=== PATIENT | male | born 1960 | race Caucasian/White ===

== ENCOUNTER 2022-10-21 07:53 | Outpatient (OUT) | payer BC, SELFPAY ==
--- NOTE | 2022-10-21 08:04 | US_ITS ---
The [address] [address] Patient Name: VIVIENNE HEALY MRN: [id number] date: 1960 Sex: M Assigned Patient Location: US Current Patient Location: US Accession/Order Number: [id number] Exam Date: 10/21/2022 08:02 Report Date: 10/21/2022 09:14 At the request of: LILY ZARCO Procedure: US carotid duplex BI EXAM: US abdominal aortic aneurysm, US carotid duplex BI HISTORY: INFARENAL ABDOMINAL AORTIC ANEURYSM I71.43 COMPARISON: U106/10/2021ound. TECHNIQUE: Real-time aortic ultrasound. Doppler color flow as well as spectral analysis were performed. Findings: There is aneurysmal dilatation of the abdominal aorta. Proximally: 3.2 x 3.6 cm. Mid: 3.3 x 4.0 cm. Distally 3.9 x 4.2 cm. The right and left common iliac arteries measure 2.3 x 2.8 and 2.1 x 2.7 cm. IMPRESSION: 1. Abdominal aortic aneurysm. Electronically authenticated by: DOMINGUEZ ORLANDO Date: 10/21/2022 09:14
--- NOTE | 2022-10-21 08:04 | US_ITS ---
The [address] [address] Patient Name: VIVIENNE HEALY MRN: [id number] date: 1960 Sex: M Assigned Patient Location: Current Patient Location: Accession/Order Number: [id number] Exam Date: 10/21/2022 08:02 Report Date: 10/21/2022 09:14 At the request of: LILY ZARCO Procedure: US abdominal aortic aneurysm EXAM: US abdominal aortic aneurysm, US carotid duplex BI HISTORY: INFARENAL ABDOMINAL AORTIC ANEURYSM I71.43 COMPARISON: U106/10/2021ound. TECHNIQUE: Real-time aortic ultrasound. Doppler color flow as well as spectral analysis were performed. Findings: There is aneurysmal dilatation of the abdominal aorta. Proximally: 3.2 x 3.6 cm. Mid: 3.3 x 4.0 cm. Distally 3.9 x 4.2 cm. The right and left common iliac arteries measure 2.3 x 2.8 and 2.1 x 2.7 cm. US/US abdominal aortic aneurysm IMPRESSION: 1. Abdominal aortic aneurysm. Electronically authenticated by: DOMINGUEZ ORLANDO Date: 10/21/2022 09:14
== END 2022-10-21 07:54 ==
LOC: US 07:56
PROVIDERS: PCP Family Medicine
DX: I65.23 Occlusion and stenosis of bilateral carotid arteries (principal); I71.43 Infrarenal abdominal aortic aneurysm, without rupture; R09.89 Other specified symptoms and signs involving the circulatory and respiratory systems
CPT/HCPCS: 76775; 93880

== ENCOUNTER 2023-03-19 07:31 | Outpatient (REF) | payer BC, SELFPAY ==
[2023-03-20 09:34] LABS: Occult Blood Negative
== END 2023-03-19 07:32 | disposition home or self-care (01) ==
LOC: LAB 07:31
PROVIDERS: PCP Family Medicine; Visit Provider Family Medicine
DX: Z00.00 Encounter for general adult medical examination without abnormal findings (principal)
CPT/HCPCS: G0328

== ENCOUNTER 2023-03-20 06:32 | Outpatient (OUT) | payer BC, SELFPAY ==
[2023-03-20 07:03] LABS: Basophils Absolute Auto 0.1 10^3/uL (0.0-0.1); Basophils Percent Auto 0.8 % (0.2-2.0); Eosinophils Absolute Auto 0.2 10^3/uL (0.0-0.7); Eosinophils Percent Auto 2.4 % (0.9-7.0); Hematocrit 47.5 % (42.0-54.0); Hemoglobin 15.8 g/dL (14.0-18.0); Immature Granulocytes Abs Auto 0.01 10^3/uL (0.00-0.03); Immature Granulocytes Pct Auto 0.1 % (0.0-0.5); Lymphocytes Absolute Auto 2.1 10^3/uL (1.2-3.8); Lymphocytes Percent Auto 29.3 % (20.5-60.0); Mean Corpuscular HGB Conc 33.3 g/dL (29.9-35.2); Mean Corpuscular Volume 87.3 fL (80.0-94.0); Monocytes Absolute Auto 0.6 10^3/uL (0.3-0.8); Monocytes Percent Auto 7.9 % (1.7-12.0); Neutrophils Absolute Auto 4.2 10^3/uL (1.4-6.5); Neutrophils Percent Auto 59.5 % (43.0-75.0); Platelet Count 202 10^3/uL (150-450); Red Blood Count 5.44 10^6/uL (4.70-6.10); Red Cell Distribution Width 12.6 % (11.0-15.0); White Blood Count 7.1 10^3/uL (4.0-11.0)
[2023-03-20 07:56] LABS: Prostate Specific Antigen Scrn 0.98 ng/mL (<=4.00)
[2023-03-20 07:57] LABS: Alanine Aminotransferase 32 U/L (16-63); Albumin Globulin Ratio 1.3; Albumin Level 3.8 g/dL (3.4-5.0); Alkaline Phosphatase 113 U/L (46-116); Anion Gap 12.6; Aspartate Amino Transferase 16 U/L (15-37); BUN Creatinine Ratio 15.7; Bilirubin Total 0.9 mg/dL (0.2-1.0); Carbon Dioxide 30.8 mmol/L (21.0-32.0); Chloride 105 mmol/L (98-107); Chol HDL Ratio 3.4; Cholesterol 135 mg/dL (<=200); Estimated GFR (African America >60 (>=60); Estimated GFR (Non-African Ame >60 (>=60); Free T3 3.05 pg/mL (2.18-3.98); Glucose 105 mg/dL (74-106); HDL Cholesterol 40 mg/dL (40-60); LDL Cholesterol Calculated 71.6 mg/dL; Potassium 4.4 mmol/L (3.5-5.1); Sodium 144 mmol/L (136-145); Total Protein 6.8 g/dL (6.4-8.2); Triglycerides 117 mg/dL (<=150); VLDL CHOLESTEROL 23.4 mg/dL
[2023-03-20 08:03] LABS: Estimated Average Glucose 108 mg/dL; Glycohemoglobin A1C 5.4 % (4.5-6.2)
[2023-03-22 12:08] LABS: Insulin 12.8 uIU/mL (2.6-24.9)
== END 2023-03-20 06:33 | disposition home or self-care (01) ==
LOC: LAB 06:33
PROVIDERS: PCP Family Medicine; Visit Provider Family Medicine
DX: Z00.00 Encounter for general adult medical examination without abnormal findings (principal)
CPT/HCPCS: 36415; 80053; 80061; 83036; 83525; 84436; 84443; 84481; 85025; G0103; G0328

== ENCOUNTER 2023-04-13 15:42 | Outpatient (OUT) | payer BC, SELFPAY ==
--- NOTE | 2023-04-13 15:47 | CT_ITS ---
[address] [address] Patient Name: VIVIENNE HEALY MRN: [id number] date: 1960 Sex: M Assigned Patient Location: CT Current Patient Location: CT Accession/Order Number: [id number] Exam Date: 04/13/2023 16:04 Report Date: 04/13/2023 16:52 At the request of: LILY ZARCO Procedure: CT angio abdomen pelvis EXAM: CT angiogram of the abdomen and pelvis using 97 mL of IV iodinated contrast. 3D images were generated on an independent workstation for better evaluation of the vasculature. Dose reduction technique used: Automated exposure control and/or adjustment of the mA and/or kV according to patient size and/or use of iterative reconstruction technique. REASON FOR EXAM: Aortic Aneurysm I71.43 COMPARISON: CT scan dated 10/25/2017 FINDINGS: Infrarenal abdominal aortic aneurysm measuring up to 3.4 cm. No aortic dissection or significant stenosis. Penetrating atheromatous ulcer versus focal dissection in the right common iliac artery with right common iliac artery aneurysm measuring up to 2.3 cm. 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 Focal dissection versus penetrating atheromatous ulcer in the left internal iliac artery. Moderate to severe stenosis at the origin of the left renal artery origin. Mild contour irregularity along the course of the left renal artery with diffuse fusiform dilation of the main left renal artery measuring up to 9 mm. Mild stenosis at the origin of the right renal artery. Fusiform ectasia at the right renal artery brifurcation measuring up to 8 mm. Stenosis versus occlusion at the origin of the inferior mesenteric artery with collateral reconstitution. Cholecystectomy. Right renal cyst measuring up to 6.2 cm. Colonic diverticulosis. Normal appendix. No free intraperitoneal air. No free fluid in the abdomen or pelvis. No dilated or thickened loops of small bowel or colon. No hydronephrosis or obstructing renal or ureteral calculi. Liver, pancreas, spleen, bilateral kidneys, and bilateral adrenal glands are otherwise unremarkable. Remainder unremarkable. CT/CT angio abdomen pelvis IMPRESSION: 1. Infrarenal abdominal aortic aneurysm measuring up to 3.4 cm. 2. 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 3. 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 4. Focal penetrating atheromatous ulcer or dissection flap in the left internal iliac artery. 5. 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 6. Contour irregularities and diffuse fusiform aneurysmal dilation left renal artery, findings could be due to fibromuscular dysplasia. 7. Mild fusiform aneurysmal dilation at the bifurcation of the right renal artery. Electronically authenticated by: JOHNATHAN BRAR Date: 04/13/2023 16:52
== END 2023-04-13 15:43 | disposition home or self-care (01) ==
PROVIDERS: PCP Family Medicine
DX: I71.43 Infrarenal abdominal aortic aneurysm, without rupture (principal); I72.3 Aneurysm of iliac artery
CPT/HCPCS: 74174; Q9967

== ENCOUNTER 2024-02-22 07:11 | Outpatient (OUT) | payer BC, SELFPAY ==
--- OUTSIDE RECORDS SUMMARY | 2024-02-22 07:15 | XMS_ITS | CCD ---
Author Organization [facility] Care Team Providers Care Event Marketing Specialist Name Role Phone Zuhair Morel Unavailable Unavailable HOY ., DR LINDSAY Primary Care Unavailable ELTAHAWY, DR RICE Attending Unavailable ELTAHAWY, DR RICE Admitting Unavailable ELTAHAWY, DR RICE Consulting Unavailable HOY ., DR LINDSAY Primary Care Unavailable MISC, DR JACOBSON Attending Unavailable MISC, DR JACOBSON Admitting Unavailable MISC, DR JACOBSON Consulting Unavailable JIA, LUIS Attending Unavailable LUIS RO Admitting Unavailable HOY ., DR LINDSAY Primary Care Unavailable LUIS RO Consulting Unavailable SERGIO LOGAN Admitting Unavailable WEST, DR AARON Diallo Consulting Unavailable DESMONDSERGIO Attending Unavailable HOY ., DR LINDSAY Primary Care Unavailable SERGIO LOGAN Consulting Unavailable HOY ., DR LINDSAY Consulting Unavailable HOY ., DR LINDSAY Attending Unavailable HOY ., DR LINDSAY Admitting Unavailable HOY ., DR LINDSAY Primary Care Unavailable WEST, DR AARON Diallo Consulting Unavailable ELTAHAWY, EHAB Attending Unavailable Problems Active Problems Problem Classification Problem Date Documented Date Episodic/Chronic Cardiac dysrhythmias (2 sources) Palpitations; Translations: [Palpitations] Onset: 11-15-2023 Episodic Coronary atherosclerosis and other heart disease (6 sources) Atherosclerotic heart disease of [place] coronary artery without angina pectoris; Translations: [ASHD DRY CREEK CA W/O ANGINA PECTORIS] Onset: 05-27-2022 Chronic Coronary atherosclerosis and other heart disease (4 sources) Presence of aortocoronary bypass graft; Translations: [PRESENCE AORTOCORONARY BYPASS GRAFT] Onset: 06-01-2022 Episodic Disorders of lipid metabolism (2 sources) Hyperlipidemia, unspecified; Translations: [Hyperlipidemia, unspecified] Onset: 11-15-2023 Chronic Occlusion or stenosis of precerebral arteries (1 source) Occlusion and stenosis of bilateral carotid arteries; Translations: [OCCLUSION AND STENOS PREETHI CAROTID ART] Onset: 04-10-2022 Chronic Residual codes; unclassified (2 sources) Other specified health status; Translations: [Other specified health status] Onset: 11-15-2023 Episodic Unclassified (1 source) ABDOMINAL AA W/O RUPTURE UNSPCIFIED; Translations: [ABDOMINAL AA W/O RUPTURE UNSPCIFIED] Onset: 04-10-2022 Past or Other Problems Problem Classification Problem Date Documented Da te Episodic/Chronic Nonspecific chest pain (4 sources) Chest pain, unspecified; Translations: [CHEST PAIN UNSPECIFIED] Onset: 03-26-2022 Episodic Results Test Name Value Interpretation Reference Range Facil ity Office Visiton 11-15-2023 Follow-up visit [id number] Alexandrea Healy 1960 M Date Provider Department Center 11/15/2023 Gabriela-KRYSTAL JARA [facility] Family History Problem Relation Age of Onset Heart attack Father 46 Heart attack Brother 55 Coronary artery disease Brother Other Brother Family Status - Relation Status Age at Father Brother Alive Level of Service:79912 [place] OFFICE/OUTPATIENT ESTABLISHED MOD MDM 30 MIN Normal [facility] CBC AUTO DIFFon 05-27-2022 BASO # 0.1 103/ul Normal 0.0-0.1 [facility] Comment on above: Performed By: #### C BC #### [facility] [address] [place] [address] Dr. Kvng Smith Basophils/100 WBC (Bld) 0.9 % Normal 0.2-2.0 [facility] Comment on above: Performed By: #### C BC #### [facility] [address] [address] [address] Kvng Smith EO # 0.3 103/ul Normal 0.0-0.7 [facility] Comment on above: Performed By: #### C BC #### [facility] [address] [address] [address] Kvng Smith Eosinophils/100 WBC (Bld) 4.2 % Normal 0.9-7.0 [facility] Comment on above: Performed By: #### C BC #### [facility] [address] [address] [address] Kvng Smith Erythrocyte distribution width (RBC) [Ratio] 14.2 % Normal 11.0-15.0 [facility] Comment on above: Performed By: #### C BC #### [facility] [address] [place] [address] Dr. Kvng Smith Hematocrit (Bld) [Volume fraction] 43.2 % Normal 42.0-54.0 [facility] Comment on above: Performed By: #### C BC #### [facility] [address] [place] [address] Dr. Kvng Smith Hemoglobin (Bld) [Mass/Vol] 14.0 g/dL Normal 14.0-18.[address] [facility] Comment on above: Performed By: #### C BC #### [facility] [address] [place] [address] Dr. Kvng Smith IG # 0.02 10e3/ul Normal 0.00-0.03 [facility] Comment on above: Performed By: #### C BC #### [facility] [address] [place] [address] Dr. Kvng Smith IG % 0.3 % Normal 0.0-0.5 [facility] Comment on above: Performed By: #### C BC #### [facility] [address] [place] [address] Dr. Kvng Smith LYMPH # 1.7 103/ul Normal 1.2-3.8 [facility] Comment on above: Performed By: #### C BC #### [facility] [address] [place] [address] Dr. Kvng Smith Lymphocytes/100 WBC (Bld) 25.2 % Normal 20.5-60.[address] [facility] Comment on above: Performed By: #### C BC #### [facility] [address] [place] [address] Dr. Kvng Smith MANUAL DIFF REQ NO Normal [facility] Comment on above: Performed By: #### C BC #### [facility] [address] [place] [address] Dr. Kvng Smith MCH (RBC) [Entitic mass] 27.8 pg Normal 25.9-34.0 [facility] Comment on above: Performed By: #### C BC #### [facility] [address] [place] [address] Dr. Kvng Smith MCHC (RBC) [Mass/Vol] 32.4 g/dL Normal 29.9-35.2 [facility] Comment on above: Performed By: #### C BC #### [facility] [address] [place] [address] Dr. Kvng Smith MCV (RBC) [Entitic vol] 85.7 fL Normal 80.0-94.[address] [facility] Comment on above: Performed By: #### C BC #### [facility] [address] [place] [address] Dr. Kvng Smith MONO # 0.5 103/ul Normal 0.3-0.8 [facility] Comment on above: Performed By: #### C BC #### [facility] [address] [place] [address] Dr. Kvng Smith Monocytes/100 WBC (Bld) 7.7 % Normal 1.7-12.0 [facility] Comment on above: Performed By: #### C BC #### [facility] [address] [place] [address] Dr. Kvng Smith NEUT # 4.2 103/ul Normal 1.4-6.5 [facility] Comment on above: Performed By: #### C BC #### [facility] [address] [place] [address] Dr. Kvng Smith Neutrophils/100 WBC (Bld) 61.7 % Normal 43.0-75.[address] [facility] Comment on above: Performed By: #### C BC #### [facility] [address] [place] [address] Dr. Kvng Smith Platelet mean volume (Bld) [Entitic vol] 8.9 fL Critically low 9.5-13.5 [facility] Comment on above: Performed By: #### C BC #### [facility] [address] [place] [address] Dr. Kvng Smith PLT 208 103/ul Normal 150-[address] [facility] Comment on above: Performed By: #### C BC #### [facility] [address] [address] [address] Kvng Smith RBC 5.04 106/ul Normal 4.70-6.[address] [facility] Comment on above: Performed By: #### C BC #### [facility] [address] [address] [address] Kvng Smith WBC 6.9 103/ul Normal 4.0-11.0 [facility] Comment on above: Performed By: #### C BC #### [facility] [address] [address] [address] Kvng Smith LIPID PROFILEon 05-27-2022 CHOL-HDL RATIO NORM SEE BELOW Normal [facility] Comment on above: Result Comment: 3.3 - 4.4 LOW RISK 4.4 - 7.1 AVERAGE RISK 7.1 - 11.0 MODERATE RISK >11.0 HIGH RISK Performed By: #### L IPID, CMP #### [facility] [address] [place] [address] Dr. Kvng Smith Cholesterol [Mass/Vol] 135 mg/dL Normal <=[address] [facility] Comment on above: Performed By: #### L IPID, CMP #### [facility] [address] [place] [address] Dr. Kvng Smith Cholesterol in HDL [Mass/Vol] 38 mg/dL Critically low 40-[address] [facility] Comment on above: Performed By: #### L IPID, CMP #### [facility] [address] [address] [address] Kvng Smith Cholesterol in LDL [Mass/Vol] 61.2 mg/dL Normal [facility] Comment on above: Performed By: #### L IPID, CMP #### [facility] [address] [address] [address] Kvng Smith Cholesterol.total/ Cholesterol in HDL [Mass ratio] 3.6 {ratio} Normal [facility] Comment on above: Performed By: #### L IPID, CMP #### [facility] [address] [address] [address] Kvng Smith HDL NORMAL > or = 60 mg/dl - LO W CARDIOVASCULAR RISK <40 mg/dl - HIGH CARDIOVASCULAR RISK Normal [facility] Comment on above: Performed By: #### L IPID, CMP #### [facility] [address] [address] [address] Kvng Smith LDL CALC NORMAL SEE BELOW Normal [facility] Comment on above: Result Comment: <100 mg/dl OPTIMAL 100 - 129 mg/dl NEAR OR ABOVE OPTIMAL 130 - 159 mg/dl BORDERLINE HIGH 160 - 189 mg/dl HIGH >190 mg/dl VERY HIGH Performed By: #### L IPID, CMP #### [facility] [address] [place] [address] Dr. Kvng Smith Triglyceride [Mass/Vol] 179 mg/dL Critically high <=150 [facility] Comment on above: Performed By: #### L IPID, CMP #### [facility] [address] [place] [address] Dr. Kvng Smith VLDL CALC 35.8 mg/dL Normal [facility] Comment on above: Performed By: #### L IPID, CMP #### [facility] [address] [place] [address] Dr. Kvng Smith PROF 14(COMP METB)on 023 Albumin [Mass/Vol] 3.6 g/dL Normal 3.4-5.0 [facility] Comment on above: Performed By: #### L IPID, CMP #### [facility] [address] [place] [address] Dr. Kvng Smith Albumin/Globulin [Mass ratio] 1.2 {ratio} Normal [facility] Comment on above: Performed By: #### L IPID, CMP #### [facility] [address] [place] [address] Dr. Kvng Smith ALP [Catalytic activity/Vol] 129 U/L Critically high 46-116 [facility] Comment on above: Performed By: #### L IPID, CMP #### [facility] [address] [place] [address] Dr. Kvng Smith ALT [Catalytic activity/Vol] 32 U/L Normal 16-63 [facility] Comment on above: Performed By: #### L IPID, CMP #### [facility] [address] [place] [address] Dr. Kvng Smith Anion gap [Moles/Vol] 8.8 mmol/L Normal [facility] Comment on above: Performed By: #### L IPID, CMP #### [facility] [address] [place] [address] Dr. Kvng Smith AST [Catalytic activity/Vol] 16 U/L Normal 15-37 [facility] Comment on above: Performed By: #### L IPID, CMP #### [facility] [address] [place] [address] Dr. Kvng Smith Bilirubin [Mass/Vol] 0.5 mg/dL Normal 0.2-1.0 [facility] Comment on above: Performed By: #### L IPID, CMP #### [facility] [address] [place] [address] Dr. Kvng Smith Calcium [Mass/Vol] 9.3 mg/dL Normal 8.5-10.1 [facility] Comment on above: Performed By: #### L IPID, CMP #### [facility] [address] [place] [address] Dr. Kvng Smith Chloride [Moles/Vol] 104 mmol/L Normal 98-107 [facility] Comment on above: Performed By: #### L IPID, CMP #### [facility] [address] [place] [address] Dr. Kvng Smith CO2 [Moles/Vol] 32.1 mmol/L Critically high 21.0-32.0 [facility] Comment on above: Performed By: #### L IPID, CMP #### [facility] [address] [place] [address] Dr. Kvng Smith Creatinine [Mass/Vol] 0.91 mg/dL Normal 0.70-1.30 [facility] Comment on above: Performed By: #### L IPID, CMP #### [facility] [address] [place] [address] Dr. Kvng Smith EGFR-AF TOGOLESE >60 Normal >=60 [facility] Comment on above: Performed By: #### L IPID, CMP #### [facility] [address] [address] [address] Kvng Smith EGFR-NON AF TOGOLESE >60 Normal >=60 [facility] Comment on above: Performed By: #### L IPID, CMP #### [facility] [address] [address] [address] Kvng Smith Globulin (S) [Mass/Vol] 3.0 g/dL Normal [facility] Comment on above: Performed By: #### L IPID, CMP #### [facility] [address] [address] [address] Kvng Smith Glucose [Mass/Vol] 108 mg/dL Critically high 74-106 [facility] Comment on above: Performed By: #### L IPID, CMP #### [facility] [address] [address] [address] Kvng Smith Potassium [Moles/Vol] 3.9 mmol/L Normal 3.5-5.1 [facility] Comment on above: Performed By: #### L IPID, CMP #### [facility] [address] [address] [address] Kvng Smith Protein [Mass/Vol] 6.6 g/dL Normal 6.4-8.2 [facility] Comment on above: Performed By: #### L IPID, CMP #### [facility] [address] [address] [address] Kvng Smith Sodium [Moles/Vol] 141 mmol/L Normal 136-145 [facility] Comment on above: Performed By: #### L IPID, CMP #### [facility] [address] [address] [address] Kvng Smith Urea nitrogen [Mass/Vol] 14.0 mg/dL Normal 7.0-18.0 [facility] Comment on above: Performed By: #### L IPID, CMP #### [facility] [address] [place] [address] Dr. Kvng Smith Urea nitrogen/Creatinin e [Mass ratio] 15.4 mg/mg Normal [facility] Comment on above: Performed By: #### L IPID, CMP #### [facility] [address] [place] [address] Dr. Kvng Smith CBC AUTO DIFFon 04-09-2022 BASO # 0.0 103/ul Normal 0.0-0.1 [facility] Comment on above: Performed By: #### C BC #### [facility] [address] [place] [address] Dr. Kvng Smith Basophils/100 WBC (Bld) 0.7 % Normal 0.2-2.[address] [facility] Comment on above: Performed By: #### C BC #### [facility] [address] [place] [address] Dr. Kvgn Smith EO # 0.1 103/ul Normal 0.0-0.7 [facility] Comment on above: Performed By: #### C BC #### [facility] [address] [place] [address] Dr. Kvng Smith Eosinophils/100 WBC (Bld) 2.3 % Normal 0.9-7.0 [facility] Comment on above: Performed By: #### C BC #### [facility] [address] [place] [address] Dr. Kvng Smith Erythrocyte distribution width (RBC) [Ratio] 12.9 % Normal 11.0-15.[address] [facility] Comment on above: Performed By: #### C BC #### [facility] [address] [place] [address] Dr. Kvng Smith Hematocrit (Bld) [Volume fraction] 47.1 % Normal 42.0-54.[address] [facility] Comment on above: Performed By: #### C BC #### [facility] [address] [place] [address] Dr. Kvng Smith Hemoglobin (Bld) [Mass/Vol] 15.3 g/dL Normal 14.0-18.[address] [facility] Comment on above: Performed By: #### C BC #### [facility] [address] [place] [address] Dr. Kvng Smith IG # 0.01 10e3/ul Normal 0.00-0.03 [facility] Comment on above: Performed By: #### C BC #### [facility] [address] [place] [address] Dr. Kvng Smith IG % 0.2 % Normal 0.0-0.5 [facility] Comment on above: Performed By: #### C BC #### [facility] [address] [place] [address] Dr. Kvng Smith LYMPH # 1.5 103/ul Normal 1.2-3.8 [facility] Comment on above: Performed By: #### C BC #### [facility] [address] [place] [address] Dr. Kvng Smith Lymphocytes/100 WBC (Bld) 26.7 % Normal 20.5-60.0 [facility] Comment on above: Performed By: #### C BC #### [facility] [address] [place] [address] Dr. Kvng Smith MANUAL DIFF REQ NO Normal [facility] Comment on above: Performed By: #### C BC #### [facility] [address] [place] [address] Dr. Kvng Smith MCH (RBC) [Entitic mass] 27.7 pg Normal 25.9-34.0 [facility] Comment on above: Performed By: #### C BC #### [facility] [address] [place] [address] Dr. Kvng Smith MCHC (RBC) [Mass/Vol] 32.5 g/dL Normal 29.9-35.2 [facility] Comment on above: Performed By: #### C BC #### [facility] [address] [place] [address] Dr. Kvng Smith MCV (RBC) [Entitic vol] 85.2 fL Normal 80.0-94.0 [facility] Comment on above: Performed By: #### C BC #### [facility] [address] [place] [address] Dr. Kvng Smith MONO # 0.4 103/ul Normal 0.3-0.8 [facility] Comment on above: Performed By: #### C BC #### [facility] [address] [place] [address] Dr. Kvng Smith Monocytes/100 WBC (Bld) 7.8 % Normal 1.7-12.0 [facility] Comment on above: Performed By: #### C BC #### [facility] [address] [place] [address] Dr. Kvng Smith NEUT # 3.5 103/ul Normal 1.4-6.[address] [facility] Comment on above: Performed By: #### C BC #### [facility] [address] [place] [address] Dr. Kvng Smith Neutrophils/100 WBC (Bld) 62.3 % Normal 43.0-75.0 [facility] Comment on above: Performed By: #### C BC #### [facility] [address] [place] [address] Dr. Kvng Smith Platelet mean volume (Bld) [Entitic vol] 9.0 fL Critically low 9.5-13.[address] [facility] Comment on above: Performed By: #### C BC #### [facility] [address] [place] [address] Dr. Kvng Smith PLT 184 103/ul Normal 150-[address] [facility] Comment on above: Performed By: #### C BC #### [facility] [address] [place] [address] Dr. Kvng Smith RBC 5.53 106/ul Normal 4.70-6.[address] [facility] Comment on above: Performed By: #### C BC #### [facility] [address] [place] [address] Dr. Kvng Smith WBC 5.7 103/ul Normal 4.0-11.[address] [facility] Comment on above: Performed By: #### C BC #### [facility] [address] [place] [address] Dr. Kvng Smith PROF CHEM 8 (BAS METB)on Anion gap [Moles/Vol] 10.2 mmol/L Normal [facility] Comment on above: Performed By: #### B MP #### [facility] [address] [place] [address] Dr. Kvng Smith Calcium [Mass/Vol] 9.0 mg/dL Normal 8.5-10.1 [facility] Comment on above: Performed By: #### B MP #### [facility] [address] [place] [address] Dr. Kvng Smith Chloride [Moles/Vol] 104 mmol/L Normal 98-107 [facility] Comment on above: Performed By: #### B MP #### [facility] [address] [place] [address] Dr. Kvng Smith CO2 [Moles/Vol] 30.9 mmol/L Normal 21.0-32.0 [facility] Comment on above: Performed By: #### B MP #### [facility] [address] [place] [address] Dr. Kvng Smith Creatinine [Mass/Vol] 0.83 mg/dL Normal 0.70-1.[address] [facility] Comment on above: Performed By: #### B MP #### [facility] [address] [place] [address] Dr. Kvng Smith EGFR-AF TOGOLESE >60 Normal >=60 [facility] Comment on above: Performed By: #### B MP #### [facility] [address] [place] [address] Dr. Kvng Smith EGFR-NON AF TOGOLESE >60 Normal >=[address] [facility] Comment on above: Performed By: #### B MP #### [facility] [address] [place] [address] Dr. Kvng Smith Glucose [Mass/Vol] 106 mg/dL Normal 74-106 [facility] Comment on above: Performed By: #### B MP #### [facility] [address] [place] [address] Dr. Kvng Smith Potassium [Moles/Vol] 5.1 mmol/L Normal 3.5-5.1 [facility] Comment on above: Performed By: #### B MP #### [facility] [address] [address] [address] Kvng Smith Sodium [Moles/Vol] 140 mmol/L Normal 136-145 [facility] Comment on above: Performed By: #### B MP #### [facility] [address] [address] [address] Kvng Smith Urea nitrogen [Mass/Vol] 14.0 mg/dL Normal 7.0-18.0 [facility] Comment on above: Performed By: #### B MP #### [facility] [address] [address] [address] Kvng Smith Urea nitrogen/Creatinin e [Mass ratio] 16.9 mg/mg Normal [facility] Comment on above: Performed By: #### B MP #### [facility] [address] [address] [address] Kvng Smith US ABD AORTA DIAGNOSTICon US ABD AORTA DIAGNOSTIC EXAMINATION: US ABD AORTA DIAGNOSTIC HISTORY: Abdominal aortic aneurysm without rupture COMPARISON: No relevant comparison available. TECHNIQUE: Ultrasound examination of the retroperitoneal area was performed, with a focused evaluation of the abdominal aorta. FINDINGS: PICC line Limited exam due to patient body habitus and bowel gas Proximal aorta: 2.8 x 3.1 cm Mid aorta: 3.0 x 2.9 cm Distal aorta: 3.8 x 4.7 cm Right common iliac artery: 2.2 x 2.4 cm Left common iliac artery: 1.9 x 1.7 cm Moderate atherosclerotic plaque. Normal color flow IMPRESSION: Fusiform distal abdominal aortic aneurysm measuring 3.8 x 4.7 cm Electronically authenticated by: AARON ARAGON Date: 2022-04-09 17:01 Normal [facility] US CAROTID ART BILon US CAROTID ART PREETHI EXAMINATION: US CAROTID ART PREETHI HISTORY: Bilateral carotid artery occlusion COMPARISON: No relevant comparison available. TECHNIQUE: Duplex Doppler ultrasound analysis of carotid and vertebral arteries. . Bilateral carotid arterial duplex examination was performed using B-mode, color flow and spectral analysis. Carotid stenosis is reported according to validated velocity parameters, similar to NASCET criteria. FINDINGS: RIGHT CAROTID ARTERY Moderate atherosclerotic plaque. 69% area reduction in the bulb, 72% area reduction proximal ICA Subclavian: PSV: 180.7 cm/s cm/s EDV: 6.1 cm/s cm/s CCA: Prox: PSV: 84.6 cm/s cm/s EDV: 21.5 cm/s cm/s Mid: PSV: 110.2 cm/s cm/s EDV: 23.5 cm/s cm/s Distal: PSV: 100.3 cm/s cm/s EDV: 21.5 cm/s cm/s BULB: PSV: 106.4 cm/s cm/s EDV: 35.4 cm/s cm/s ICA: Prox: PSV: 129.9 cm/s cm/s EDV: 39.3 cm/s cm/s Mid: PSV: 139.0 cm/s cm/s EDV: 44.3 cm/s cm/s Distal: PSV: 83.4 cm/s cm/s EDV: 27.6 cm/s cm/s ECA: PSV: 153.0 cm/s cm/s EDV: 23.0 cm/s cm/s VERTEBRAL: PSV: 49.9 cm/s cm/s EDV: 20.8 cm/s cm/s ICA/CCA ratio: PSV: 1.4 EDV: 2.1 LEFT CAROTID ARTERY Moderate atherosclerotic plaque. 62% reduction in the bulb Subclavian: PSV: 194.7 cm/s cm/s EDV: 0.0 cm/s CCA: Prox: PSV: 144.5 cm/s cm/s EDV: 44.3 cm/s Mid: PSV: 108.3 cm/s cm/s EDV: 27.6 cm/s Distal: PSV: 96.4 cm/s cm/s EDV: 21.5 cm/s BULB: PSV: 60.9 cm/s cm/s EDV: 19.5 cm/s ICA: Prox: PSV: 94.4 cm/s cm/s EDV: 29.4 cm/s Mid: PSV: 98.4 cm/s cm/s EDV: 33.3 cm/s Distal: PSV: 106.2 cm/s cm/s EDV: 39.2 cm/s ECA: PSV: 120.0 cm/s cm/s EDV: 17.5 cm/s VERTEBRAL: PSV: 55.9 cm/s cm/s EDV: 20.8 cm/s ICA/CCA ratio: PSV: 1.1 EDV: 1.8 IMPRESSION: 50-69% flow stenosis right internal carotid artery 0-49% flow stenosis left internal carotid artery Spectral Doppler US Thresholds (Reference: Sourav EG, et al. Radiology 2000; 214:247-252) Stenosis (%) PSV (cm/sec) VICA/VCCA 0-49 <150 <2.5 50-69 150-225 2.5-4.0 >70 >225 >4.0 Electronically authenticated by: AARON ARAGON Date: 2022-04-09 17:03 Normal [facility] NM STRESS/REST MULTIon 03-26 NM STRESS/REST MULTI Patient: VIVIENNE HEALY Exam Date: 03/26/2022 : 1960 Gender:M Ordering : DR NEFTALI MAURO . Admission #: [id number] Family : Order #: [id number] CLICK HERE TO VIEW EXAM RADIOLOGY REPORT PROCEDURE: RADIONUCLIDE IMAGING STRESS/REST MULTI COMPARISON: None. INDICATIONS: Chest pain TECHNIQUE: Exam Description: Stress/Rest one day protocol gated SPECT Rest Imagin.7 mCi Tc-99m Cardiolite IV on 03/26/2022 Stress Imaging 31.7 mCi Tc-99m Cardiolite IV on 03/26/2022 Exercise Protocol: Alex Heart Rate (bpm): Rest: 64 Max: 136 PMHR: 85 Blood Pressure: Rest: 140/78 Max: 216/88 Exercise Time: Minutes: 5 Seconds: 00 Stage Reached: Stage: 2 Mets 7.0 Symptoms: chest pain at baseline Rest and peak stress ECG findings were abnormal and the exercise portion of the study was abnormal per attending physician Dr. Hardy due to EKG changes, 1mm ST segment depression in V4-6. For more details please see separate cardiac stress test report. FINDINGS: QUALITY OF STUDY: Good. PERFUSION DEFECT: LOCATION: Mid-anterior. Apical anterior. SIZE: Small (1-2 segments). SEVERITY: Moderate. TYPE: Mixed. WALL MOTION: Normal. LV SIZE: Enlarged; EDV 150 mL. TID / TCD: None; 0.9 LVEF: Abnormal. Calculated EF 49%. SUMMARY: Myocardial perfusion imaging study has ABNORMAL findings. CONCLUSION: 1. Small perfusion abnormality in the anterior with suspected partial reversibility 2. Dilated left ventricle, EDV 150 milliliters 3. Low left ventricular ejection of 49% 4. Abnormal exercise test secondary to EKG changes Dictated by: Aaron Aragon MD on 03/26/2022 at 14:08 Approved by: Aaron Aragon MD on 03/26/2022 at 14:16 Normal [facility] Encounters Encounter Date Encounter Type Care Provider Facility Start: 11-15-2023 End: 11-15-[address] [facility] Start: 06-01-2022 End: 07-21-[address] NEFTALI MAURO . Facility:[facility] Start: 05-27-2022 End: 05-28-[address] NEFTALI MAURO . Facility:[facility] Start: 04-10-2022 Encounter for other preprocedural examination SERGIO DESMOND [facility] Start: 04-09-2022 End: 04-10-2022 ambulatory LUIS RO Facility:[facility] Start: 04-09-2022 End: 04-10-2022 ambulatory SERGIOJUNITO LOGAN Facility:[facility] Start: 04-09-2022 End: 04-10-2022 Encounter for other preprocedural examination SERGIO LOGAN Facility:[facility] Start: 03-26-2022 End: 03-27-[address] NEFTALI MAURO . Facility:[facility] Start: 11-01-2017 End: 11-02-2017 Ambulatory Zuhair Tamaraemeli Facility:[id number] Payers Date Payer Category Payer Unknown [id number] [id number] [id number] 1960 Unknown [id number] 2.16.84 [id number] 1960 Unknown [id number] 2.16.84 [id number] 1960 Unknown [id number] 2.16.84 [id number] 1960 Unknown [id number] 2.16.84 [id number] 1958 Unknown [id number] Progress note 11-15-2023 Note Date & Type Note Facility 11-15-2023 Note [facility] Cardiology Clinic Note Chief Complaint: Patient here for 1 year follow up CAD, hypertension, AAA, and carotid artery stenosis. Had routine labs w/ lipid profile in Mar 2023. Says he has not been taking atorvastatin since May 2023 due to myalgias. He is not taking daily aspirin. Denies chest pain, SOB, palpitations, and lightheadedness/syncope. Says BP at home usually runs in the 130's/80's. HPI: Vivienne Healy is a 63 y.o. 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 All other systems reviewed and are negative. Cardiology ROS: Review of Systems Cardiovascular: Chest pain: soreness. Musculoskeletal: Positive for myalgias. All other systems reviewed and are negative. Past Medical History He has a past medical history of AAA (abdominal aortic aneurysm), Aneurysm (CMS/HCC), and Carotid artery stenosis. Surgical History He has a past surgical history that includes Hernia repair and Cholecystectomy. Social History He reports that he has quit smoking. His smoking use included cigarettes. He has quit using smokeless tobacco. He reports current alcohol use. No history on file for drug use. Family History Family History Problem Relation Name Age of Onset Heart attack Father 46 Heart attack Brother 55 Coronary artery disease Brother Other (cardiac stent) Brother Allergies Patient has no known allergies. Medications Current Outpatient Medications: esomeprazole (NexIUM) [address] capsule, Take 40 mg by mouth before breakfast., Disp: , Rfl: atorvastatin (Lipitor) 40 mg tablet, take 1 tablet by mouth every morning (Patient not taking: Reported on 11/15/2023), Disp: 30 tablet, Rfl: 0 metoprolol succinate XL (Toprol-XL) 25 mg 24 hr tablet, Take 0.5 tablets (12.5 mg) by mouth at bedtime. Do not crush or chew., Disp: 45 tablet, Rfl: 3 metoprolol tartrate (Lopressor) 25 mg tablet, Take 1 tablet (25 mg) by mouth in the morning and at bedtime. (Patient taking differently: Take 12.5 mg by mouth 1 (one) time each day.), Disp: 60 tablet, Rfl: 0 Last Recorded Vitals BP 143/85 (BP Location: Left arm, Patient Position: Sitting) Pulse 64 Ht 1.778 m (5' 10 ) Wt 104 kg (229 lb) SpO2 94% BMI 32.86 kg/m??? Physical Examination: GENERAL: alert and oriented x3, well developed, in no acute distress. HEAD: atraumatic, normocephalic. EYES: KAILA, EOMI. NECK: trachea midline, no JVD present, no carotid bruits present. CARDIAC: S1, S2 present. RRR. No murmur, rubs, or gallops. RESPIRATORY: CTAB, no increased effort of breathing, no rales, rhonchi, or wheezing. ABDOMEN: soft, nontender, nondistended. EXTREMITIES: no lower extremity edema, peripheral pulses are 2+ bilaterally. No rash/skin discoloration present. NEURO: strength/sensation equal and symmetric in bilateral upper and lower extremities. PSYCH: appropriate mood, affect, and judgement. Investigations: [facility] Heart Station [address] [place] [address] [phone] (fax) Echocardiogram-[facility] Name: VIVIENNE HEALY Study Date: 04/20/2022 03:17 PM B/P: / HR: Date of : 1960 Location: [facility] Height: 70 in. Age: 61 year(s) Patient Room : [facility] Weight: 226 lb. Gender: Male Patient Status: InPt BSA: 2.2 m2 Indication: Pre-op major cardiac surgery, S/P cath, Abnormal EKG, former smoker Examination: Echocardiogram (Complete) Image Quality: Fair Patient Consent: Procedure explained to patient s p @ c 3 Conclusions Left Ventricle: The left ventricle is mildly enlarged. Global left ventricular systolic function is at lower limits of normal. The EF is 50 % visually. Left ventricular wall thickness is normal. No regional wall motion abnormality. Normal diastolic function. No left ventricular hypertrophy. Right Ventricle: The right ventricle is normal in size. Normal right ventricular systolic function. Unable to assess right sided pressures due to lack of measurable tricuspid regurgitation. Left Atrium: The left atrium is normal in size. Aortic Valve: The aortic valve appears thickened but cusp mobility is good. No aortic valve regurgitation. Overall Conclusions: No significant valvular abnormalities Abdominal ultrasound; abdominal aortic aneurysm measuring 3.9 x 4.2 cm Assessment: Coronary artery disease s/p left internal mammary artery graft to the left anterior descending Essential hypertension Asymptomatic carotid stenosis Abdominal aortic aneurysm without rupture Family history of premature coronary artery dis (more content not included)... [facility] Summary Purpose Family History No Family History Records FoundNo Family History Records FoundNo Family History Records Found Advance Directives No Advanced Directives Records FoundNo Advanced Directives Records FoundNo Advanced Directives Records Found Additional Source Comments (unrecognized sect ion and content) No Status Records FoundNo Status Records FoundNo Status Records Found INFORMATION SOURCE (unrecogn ized section and content) DATE CREATED AUTHOR 11/05/2017 [facility] DATE CREATED AUTHOR AUTHOR'S ORGANIZ ATION 07/22/2022 [facility] DATE CREATED AUTHOR AUTHOR'S ORGANIZ ATION 11/15/2023 [facility] FOR RECORDS PERTAINING TO PATIENTS WHO ARE OR HAVE BEEN ENROLLED IN A CHEMICAL DEPENDENCY/SUBSTANCEABUSE PROGRAM, SOME INFORMATION MAY BE OMITTED. This clinical summary was aggregated from multiple sources. Caution should be exercised in using it in the provision of clinical care. This summary normalizes information from multiple sources, and as a consequence, information in this document may materially change the coding, format and clinical context of patient data. In addition, data may be omitted in some cases. CLINICAL DECISIONS SHOULD BE BASED ON THE PRIMARY CLINICAL RECORDS. [email or web address] provides no warranty or guarantee of the accuracy or completeness of information in this document.
[2024-02-22 07:31] LABS: Basophils Absolute Auto 0.1 10^3/uL (0.0-0.1); Basophils Percent Auto 0.7 % (0.2-2.0); Eosinophils Absolute Auto 0.2 10^3/uL (0.0-0.7); Eosinophils Percent Auto 2.7 % (0.9-7.0); Hematocrit 48.3 % (42.0-54.0); Immature Granulocytes Abs Auto 0.01 10^3/uL (0.00-0.03); Immature Granulocytes Pct Auto 0.1 % (0.0-0.5); Lymphocytes Absolute Auto 1.9 10^3/uL (1.2-3.8); Lymphocytes Percent Auto 27.1 % (20.5-60.0); Mean Corpuscular HGB Conc 33.1 g/dL (29.9-35.2); Mean Corpuscular Hemoglobin 28.4 pg (25.9-34.0); Mean Corpuscular Volume 85.6 fL (80.0-94.0); Mean Platelet Volume 8.9 fL (9.5-13.5); Monocytes Absolute Auto 0.5 10^3/uL (0.3-0.8); Monocytes Percent Auto 7.4 % (1.7-12.0); Neutrophils Absolute Auto 4.3 10^3/uL (1.4-6.5); Platelet Count 204 10^3/uL (150-450); Red Blood Count 5.64 10^6/uL (4.70-6.10); Red Cell Distribution Width 12.7 % (11.0-15.0); White Blood Count 6.9 10^3/uL (4.0-11.0)
[2024-02-22 07:48] LABS: Estimated Average Glucose 100 mg/dL; Glycohemoglobin A1C 5.1 % (4.5-6.2)
[2024-02-22 08:18] LABS: Alanine Aminotransferase 42 U/L (16-63); Albumin Level 3.4 g/dL (3.4-5.0); Alkaline Phosphatase 96 U/L (46-116); Aspartate Amino Transferase 17 U/L (15-37); BUN Creatinine Ratio 16.5; Bilirubin Total 0.5 mg/dL (0.2-1.0); Chloride 106 mmol/L (98-107); Estimated GFR (African America >60 (>=60 mL/min/1.73m^2); Estimated GFR (Non-African Ame >60 (>=60 mL/min/1.73m^2); Glucose 107 mg/dL (74-106); Potassium 4.4 mmol/L (3.5-5.1); Sodium 142 mmol/L (136-145); Total Protein 6.6 g/dL (6.4-8.2)
[2024-02-22 08:19] LABS: Albumin Globulin Ratio 1.1; Chol HDL Ratio 6.1; Cholesterol 256 mg/dL (<=200); Free T3 2.86 pg/mL (2.18-3.98); Globulin 3.2 g/dL; HDL Cholesterol 42 mg/dL (40-60); Thyroid Stimulating Hormone 1.266 uIU/mL (0.358-3.740); Triglycerides 277 mg/dL (<=150); VLDL CHOLESTEROL 55.4 mg/dL
[2024-02-22 08:26] LABS: Prostate Specific Antigen Scrn 1.08 ng/mL (<=4.00)
[2024-02-22 08:33] LABS: Anion Gap 11.3; Carbon Dioxide 29.1 mmol/L (21.0-32.0)
[2024-02-22 08:44] LABS: Internal Control Within Normal Limits; Occult Blood Positive
== END 2024-02-22 07:12 | disposition home or self-care (01) ==
LOC: LAB 07:13
PROVIDERS: PCP Family Medicine; Visit Provider Family Medicine
DX: Z00.00 Encounter for general adult medical examination without abnormal findings (principal)
CPT/HCPCS: 36415; 80053; 80061; 83036; 84436; 84443; 84481; 85025; G0103; G0328

== ENCOUNTER 2024-04-13 07:43 | Outpatient (OUT) | payer BC, SELFPAY ==
--- OUTSIDE RECORDS SUMMARY | 2024-04-13 07:47 | XMS_ITS | CCD ---
Author Organization [facility] Care Team Providers Care [employer] Chief Name Role Phone ZUNILDA Mejia, DR LINDSAY Primary Care Unavailable ELTADUKE, DR RICE Attending Unavailable ELTAHAWY, DR RICE Admitting Unavailable ELTAHAWY, DR RICE Consulting Unavailable ZUNILDA ., DR LINDSAY Primary Care Unavailable MISC, DR JACOBSON Attending Unavailable MISC, DR JACOBSON Admitting Unavailable MISC, DR JACOBSON Consulting Unavailable LUIS RO Attending Unavailable LUIS RO Admitting Unavailable ZUNILDA Mejia, DR LINDSAY Primary Care Unavailable LUIS RO Consulting Unavailable SERGIO LOGAN Admitting Unavailable MARGO, DR AARON Diallo Consulting Unavailable SERGIO LOGAN Attending Unavailable ZUNILDA ., DR LINDSAY Primary Care Unavailable SERGIO LOGAN Consulting Unavailable ZUNILDA ., DR LINDSAY Consulting Unavailable ZUNILDA ., DR LINDSAY Attending Unavailable ZUNILDA ., DR LINDSAY Admitting Unavailable ZUNILDA ., DR LINDSAY Primary Care Unavailable MARGO, DR AARON Diallo Consulting Unavailable KRYSTAL JARA Attending Unavailable Neftali Neal Primary Care Physician [phone] Talon QUILES Attending Unavailable Neftali Neal Referring Unavailable Allergies Allergy Classification Reported Allergen(s) Allergy Type Date of Onset Reaction(s) Facility (1 source) No Known Medication Allergies; Translations: [No Known Medication Allergies] Propensity to adverse reactions (disorder) [facility] Repository Medications Current Medications Medication Drug Class(es) Dates Sig (Normalized) Sig (Original) aspirin 81 mg chewable tablet (1 source) Platelet Aggregation Inhibitor, Nonsteroidal Anti-inflammatory Drug Start: 02-29-2024 aspirin 81 mg Chew Tab 81 mg = 1 tab(s), Chewed, Daily, Refills(s) 0 Start Date: 02/29/24 Status: Ordered esomeprazole 40 mg delayed release oral capsule (1 source) Proton Pump Inhibitor Start: 02-29-2024 take 1 capsule by mouth once daily esomeprazole 40 mg Cap-EC 40 mg = 1 cap(s), Oral, Daily, Refills(s) 0 Start Date: 02/29/24 Status: Ordered lisinopril 20 mg oral tablet (1 source) Angiotensin Converting Enzyme Inhibitor Start: 02-29-2024 take 1 tablet by mouth once daily lisinopril 20 mg Tab 20 mg = 1 tab(s), Oral, Daily, Refills(s) 0 Start Date: 02/29/24 Status: Ordered 24 hr metoprolol succinate 25 mg extended release oral tablet (1 source) beta-Adrenergic Jorge Start: 02-29-2024 metoprolol succinate 25 mg ER Tab 12.5 mg = 0.5 tab(s), Oral, Daily, Refills(s) 0 Start Date: 02/29/24 Status: Ordered rosuvastatin calcium 5 mg oral tablet (1 source) HMG-CoA Reductase Inhibitor Start: 02-29-2024 take 2.5 mg by mouth once daily rosuvastatin 5 mg Tab 2.5 mg = 0.5 tab(s), Oral, Daily, Refills(s) 0 Start Date: 02/29/24 Status: Ordered Problems Active Problems Problem Classification Problem Date Documented Da te Episodic/Chronic Aortic; peripheral; and visceral artery aneurysms (1 source) Abdominal aortic aneurysm 02-29-2024 Chronic Cardiac dysrhythmias (2 sources) Palpitations; Translations: [Palpitations] Onset: 4 Episodic Complication of device; implant or graft (1 source) Arteriosclerosis of coronary artery bypass graft 02-29-2024 Chronic Coronary atherosclerosis and other heart disease (6 sources) Atherosclerotic heart disease of [place] coronary artery without angina pectoris; Translations: [ASHD ILIAMNA CA W/O ANGINA PECTORIS] Onset: 3 Chronic Coronary atherosclerosis and other heart disease (4 sources) Presence of aortocoronary bypass graft; Translations: [PRESENCE AORTOCORONARY BYPASS GRAFT] Onset: 3 Episodic Disorders of lipid metabolism (2 sources) Hyperlipidemia, unspecified; Translations: [Hyperlipidemia, unspecified] Onset: 4 Chronic Esophageal disorders (1 source) Gastroesophageal reflux disease Onset: 2 02-29-2024 Chronic Essential hypertension (1 source) Hypertensive disorder 02-29-2024 Chronic Occlusion or stenosis of precerebral arteries (2 sources) Occlusion and stenosis of bilateral carotid arteries; Translations: [Bilateral stenosis of carotid arteries] Onset: 9 02-29-2024 Chronic Other gastrointestinal disorders (1 source) Abnormal feces; Translations: [Other fecal abnormalities] Onset: 4 Episodic Other gastrointestinal disorders (2 sources) Occult blood in stools 02-29-2024 Episodic Other nutritional; endocrine; and metabolic disorders (1 source) Body mass index 30+ - obesity 03-22-2024 Chronic Other nutritional; endocrine; and metabolic disorders (1 source) Obesity caused by energy imbalance 02-29-2024 Chronic Residual codes; unclassified (2 sources) Other specified health status; Translations: [Other specified health status] Onset: 4 Episodic Unclassified (1 source) ABDOMINAL AA W/O RUPTURE UNSPCIFIED; Translations: [ABDOMINAL AA W/O RUPTURE UNSPCIFIED] Onset: 2 Past or Other Problems Problem Classification Problem Date Documented Da te Episodic/Chronic Nonspecific chest pain (4 sources) Chest pain, unspecified; Translations: [CHEST PAIN UNSPECIFIED] Onset: 03-26-2022 Episodic Results Test Name Value Interpretation Reference Range [facility] ity Ambulatory Visit Summaryon 1 05-22-2023 Ambulatory Visit Summary Ambulatory Visit Summary VIVIENNE BRAMBILA :1960 Visit Date:03/22/2024 Ambulatory Visit Instructions Your Care Team Attending Physician - Talon QUILES MD Primary Care Physician - Neftali Neal MD Referring Physician - Neftali Neal MD This Is Your Medications List Contact prescribing physician if questions or concerns aspirin (aspirin 81 mg Chew Tab) esomeprazole (esomeprazole 40 mg Cap-EC) lisinopril (lisinopril 20 mg Tab) metoprolol (metoprolol succinate 25 mg ER Tab) rosuvastatin (rosuvastatin 5 mg Tab) Procedures Performed CABG x 1 - Coronary artery bypass graft x 1 (04/2022), Cholecystectomy, Repair of left inguinal hernia. Discharge Vitals Heart Rate (Peripheral) 72 Respiratory Rate 16 Blood Pressure 120/76 Height 177.8 cm Height 70 in Weight 102.1 kg Weight 225.092 lb BMI 32.3 Medications What How Much When Instructions Unchanged aspirin (aspirin 81 mg Chew Tab) 1 Tablets Chewed Every day Contact prescribing physician if questions or concerns Unchanged esomeprazole (esomeprazole 40 mg Cap-EC) 1 Capsules By Mouth Every day Contact prescribing physician if questions or concerns Unchanged lisinopril (lisinopril 20 mg Tab) 1 Tablets By Mouth Every day Contact prescribing physician if questions or concerns Unchanged metoprolol (metoprolol succinate 25 mg ER Tab) 0.5 Tablets By Mouth Every day Contact prescribing physician if questions or concerns Unchanged rosuvastatin (rosuvastatin 5 mg Tab) 0.5 Tablets By Mouth Every day Contact prescribing physician if questions or concerns Allergies No Known Allergies No Known Medication Allergies Problems Ongoing - Any problem that you are currently receiving treatment for. AAA (abdominal aortic aneurysm) Arteriosclerosis of coronary artery bypass graft Bilateral stenosis of carotid arteries BMI 32.0-32.9,adult Gastroesophageal reflux disease Hypertension Obesity due to excess calories Positive occult stool blood test Patient Survey You may receive a survey via text or e-mail asking about your office visit. Please share your experience with us by completing your survey. We appreciate your feedback and thank you for choosing us for your care. Normal [facility] Office Visiton 11-15-2023 Follow-up visit [id number] Alexandrea Brambila 1960 M Date Provider Department Center 11/15/2023 [id number] JARA [facility] Family History Problem Relation Age of Onset Heart attack Father 46 Heart attack Brother 55 Coronary artery disease Brother Other Brother Family Status - Relation Status Age at Father Brother Alive Level of Service:86304 LA OFFICE/OUTPATIENT ESTABLISHED MOD MDM 30 MIN Normal [facility] CBC AUTO DIFFon 05-27-2022 BASO # 0.1 103/ul Normal 0.0-0.1 [facility] Comment on above: Performed By: #### C BC #### [facility] [address] [place] [address] Dr. Kvng Smith Basophils/100 WBC (Bld) 0.9 % Normal 0.2-2.0 [facility] Comment on above: Performed By: #### C BC #### [facility] [address] [address] [address] Kvng Smith EO # 0.3 103/ul Normal 0.0-0.7 [facility] Comment on above: Performed By: #### C BC #### [facility] [address] [place] [address] Dr. Kvng Smith Eosinophils/100 WBC (Bld) 4.2 % Normal 0.9-7.0 [facility] Comment on above: Performed By: #### C BC #### [facility] [address] [place] [address] Dr. Kvng Smith Erythrocyte distribution width (RBC) [Ratio] 14.2 % Normal 11.0-15.0 [facility] Comment on above: Performed By: #### C BC #### [facility] [address] [place] [address] Dr. Kvng Smith Hematocrit (Bld) [Volume fraction] 43.2 % Normal 42.0-54.0 [facility] Comment on above: Performed By: #### C BC #### [facility] [address] [place] [address] Dr. Kvng Smith Hemoglobin (Bld) [Mass/Vol] 14.0 g/dL Normal 14.0-18.0 [facility] Comment on above: Performed By: #### C BC #### [facility] [address] [place] [address] Dr. Kvng Smith IG # 0.02 10e3/ul Normal 0.00-0.03 [facility] Comment on above: Performed By: #### C BC #### [facility] [address] [place] [address] Dr. Kvng Smith IG % 0.3 % Normal 0.0-0.5 [facility] Comment on above: Performed By: #### C BC #### [facility] [address] [place] [address] Dr. Kvng Smith LYMPH # 1.7 103/ul Normal 1.2-3.8 [facility] Comment on above: Performed By: #### C BC #### [facility] [address] [place] [address] Dr. Kvng Smith Lymphocytes/100 WBC (Bld) 25.2 % Normal 20.5-60.0 [facility] Comment on above: Performed By: #### C BC #### [facility] [address] [place] [address] Dr. Kvng Smith MANUAL DIFF REQ NO Normal [facility] Comment on above: Performed By: #### C BC #### [facility] [address] [place] [address] Dr. Kvng Smith MCH (RBC) [Entitic mass] 27.8 pg Normal 25.9-34.0 [facility] Comment on above: Performed By: #### C BC #### [facility] [address] [place] [address] Dr. Kvng Smith MCHC (RBC) [Mass/Vol] 32.4 g/dL Normal 29.9-35.2 [facility] Comment on above: Performed By: #### C BC #### [facility] [address] [place] [address] Dr. Kvng Smith MCV (RBC) [Entitic vol] 85.7 fL Normal 80.0-94.0 [facility] Comment on above: Performed By: #### C BC #### [facility] [address] [place] [address] Dr. Kvng Smith MONO # 0.5 103/ul Normal 0.3-0.8 [facility] Comment on above: Performed By: #### C BC #### [facility] [address] [place] [address] Dr. Kvng Smith Monocytes/100 WBC (Bld) 7.7 % Normal 1.7-12.0 [facility] Comment on above: Performed By: #### C BC #### [facility] [address] [place] [address] Dr. Kvng Smith NEUT # 4.2 103/ul Normal 1.4-6.5 [facility] Comment on above: Performed By: #### C BC #### [facility] [address] [place] [address] Dr. Kvng Smith Neutrophils/100 WBC (Bld) 61.7 % Normal 43.0-75.0 [facility] Comment on above: Performed By: #### C BC #### [facility] [address] [address] [address] Kvng Smith Platelet mean volume (Bld) [Entitic vol] 8.9 fL Critically low 9.5-13.5 [facility] Comment on above: Performed By: #### C BC #### [facility] [address] [place] [address] Dr. Kvng Smith PLT 208 103/ul Normal 150-450 [facility] Comment on above: Performed By: #### C BC #### [facility] [address] [place] [address] Dr. Kvng Smith RBC 5.04 106/ul Normal 4.70-6.10 [facility] Comment on above: Performed By: #### C BC #### [facility] [address] [place] [address] Dr. Kvng Smith WBC 6.9 103/ul Normal 4.0-11.0 [facility] Comment on above: Performed By: #### C BC #### [facility] [address] [place] [address] Dr. Kvng Smith LIPID PROFILEon 05-27-2022 CHOL-HDL RATIO NORM SEE BELOW Normal [facility] Comment on above: Result Comment: 3.3 - 4.4 LOW RISK 4.4 - 7.1 AVERAGE RISK 7.1 - 11.0 MODERATE RISK >11.0 HIGH RISK Performed By: #### L IPID, CMP #### [facility] [address] [place] [address] Dr. Kvng Smith Cholesterol [Mass/Vol] 135 mg/dL Normal <=200 [facility] Comment on above: Performed By: #### L IPID, CMP #### [facility] [address] [place] [address] Dr. Kvng Smith Cholesterol in HDL [Mass/Vol] 38 mg/dL Critically low 40-60 [facility] Comment on above: Performed By: #### L IPID, CMP #### [facility] [address] [place] [address] Dr. Kvng Smith Cholesterol in LDL [Mass/Vol] 61.2 mg/dL Normal [facility] Comment on above: Performed By: #### L IPID, CMP #### [facility] [address] [address] [address] Kvng Smith Cholesterol.total/ Cholesterol in HDL [Mass ratio] 3.6 {ratio} Normal [facility] Comment on above: Performed By: #### L IPID, CMP #### [facility] [address] [address] [address] Kvng Smith HDL NORMAL > or = 60 mg/dl - LO W CARDIOVASCULAR RISK <40 mg/dl - HIGH CARDIOVASCULAR RISK Normal [facility] Comment on above: Performed By: #### L IPID, CMP #### [facility] [address] [place] [address] Dr. Kvng Smith LDL CALC NORMAL SEE BELOW Normal [facility] Comment on above: Result Comment: <100 mg/dl OPTIMAL 100 - 129 mg/dl NEAR OR ABOVE OPTIMAL 130 - 159 mg/dl BORDERLINE HIGH 160 - 189 mg/dl HIGH >190 mg/dl VERY HIGH Performed By: #### L IPID, CMP #### [facility] [address] [address] [address] Kvng Smith Triglyceride [Mass/Vol] 179 mg/dL Critically high <=150 [facility] Comment on above: Performed By: #### L IPID, CMP #### [facility] [address] [address] [address] Kvng Smith VLDL CALC 35.8 mg/dL Normal [facility] Comment on above: Performed By: #### L IPID, CMP #### [facility] [address] [address] [address] Kvng Smith PROF 14(COMP METB)on 023 Albumin [Mass/Vol] 3.6 g/dL Normal 3.4-5.0 [facility] Comment on above: Performed By: #### L IPID, CMP #### [facility] [address] [address] [address] Kvng Smith Albumin/Globulin [Mass ratio] 1.2 {ratio} Normal [facility] Comment on above: Performed By: #### L IPID, CMP #### [facility] [address] [address] [address] Kvng Smith ALP [Catalytic activity/Vol] 129 U/L Critically high 46-116 [facility] Comment on above: Performed By: #### L IPID, CMP #### [facility] [address] [address] [address] Kvng Smith ALT [Catalytic activity/Vol] 32 U/L Normal 16-63 [facility] Comment on above: Performed By: #### L IPID, CMP #### [facility] [address] [address] [address] Kvng Smith Anion gap [Moles/Vol] 8.8 mmol/L Normal [facility] Comment on above: Performed By: #### L IPID, CMP #### [facility] [address] [address] [address] Kvng Smith AST [Catalytic activity/Vol] 16 U/L Normal 15-37 [facility] Comment on above: Performed By: #### L IPID, CMP #### [facility] [address] [address] [address] Kvng Smith Bilirubin [Mass/Vol] 0.5 mg/dL Normal 0.2-1.0 [facility] Comment on above: Performed By: #### L IPID, CMP #### [facility] [address] [address] [address] Kvng Smith Calcium [Mass/Vol] 9.3 mg/dL Normal 8.5-10.1 [facility] Comment on above: Performed By: #### L IPID, CMP #### [facility] [address] [address] [address] Kvng Smith Chloride [Moles/Vol] 104 mmol/L Normal 98-107 [facility] Comment on above: Performed By: #### L IPID, CMP #### [facility] [address] [address] [address] Kvng Smith CO2 [Moles/Vol] 32.1 mmol/L Critically high 21.0-32.0 [facility] Comment on above: Performed By: #### L IPID, CMP #### [facility] [address] [place] [address] Dr. Kvng Smith Creatinine [Mass/Vol] 0.91 mg/dL Normal 0.70-1.30 [facility] Comment on above: Performed By: #### L IPID, CMP #### [facility] [address] [place] [address] Dr. Kvng Smith EGFR-AF LUXEMBOURGER >60 Normal >=60 [facility] Comment on above: Performed By: #### L IPID, CMP #### [facility] [address] [place] [address] Dr. Kvng Smith EGFR-NON AF LUXEMBOURGER >60 Normal >=60 [facility] Comment on above: Performed By: #### L IPID, CMP #### [facility] [address] [place] [address] Dr. Kvng Smith Globulin (S) [Mass/Vol] 3.0 g/dL Normal [facility] Comment on above: Performed By: #### L IPID, CMP #### [facility] [address] [place] [address] Dr. Kvng Smith Glucose [Mass/Vol] 108 mg/dL Critically high 74-106 [facility] Comment on above: Performed By: #### L IPID, CMP #### [facility] [address] [place] [address] Dr. Kvng Smith Potassium [Moles/Vol] 3.9 mmol/L Normal 3.5-5.1 [facility] Comment on above: Performed By: #### L IPID, CMP #### [facility] [address] [place] [address] Dr. Kvng Smith Protein [Mass/Vol] 6.6 g/dL Normal 6.4-8.2 [facility] Comment on above: Performed By: #### L IPID, CMP #### [facility] [address] [place] [address] Dr. Kvng Smith Sodium [Moles/Vol] 141 mmol/L Normal 136-145 [facility] Comment on above: Performed By: #### L IPID, CMP #### [facility] [address] [place] [address] Dr. Kvng Smith Urea nitrogen [Mass/Vol] 14.0 mg/dL Normal 7.0-18.0 [facility] Comment on above: Performed By: #### L IPID, CMP #### [facility] [address] [place] [address] Dr. Kvng Smtih Urea nitrogen/Creatinin e [Mass ratio] 15.4 mg/mg Normal [facility] Comment on above: Performed By: #### L IPID, CMP #### [facility] [address] [place] [address] Dr. Kvng Smith CBC AUTO DIFFon 04-09-2022 BASO # 0.0 103/ul Normal 0.0-0.1 [facility] Comment on above: Performed By: #### C BC #### [facility] [address] [place] [address] Dr. Kvng Smith Basophils/100 WBC (Bld) 0.7 % Normal 0.2-2.0 [facility] Comment on above: Performed By: #### C BC #### [facility] [address] [place] [address] Dr. Kvng Smith EO # 0.1 103/ul Normal 0.0-0.7 [facility] Comment on above: Performed By: #### C BC #### [facility] [address] [place] [address] Dr. Kvng Smith Eosinophils/100 WBC (Bld) 2.3 % Normal 0.9-7.0 [facility] Comment on above: Performed By: #### C BC #### [facility] [address] [place] [address] Dr. Kvng Smith Erythrocyte distribution width (RBC) [Ratio] 12.9 % Normal 11.0-15.0 [facility] Comment on above: Performed By: #### C BC #### [facility] [address] [place] [address] Dr. Kvng Smith Hematocrit (Bld) [Volume fraction] 47.1 % Normal 42.0-54.0 [facility] Comment on above: Performed By: #### C BC #### [facility] [address] [place] [address] Dr. Kvng Smith Hemoglobin (Bld) [Mass/Vol] 15.3 g/dL Normal 14.0-18.0 [facility] Comment on above: Performed By: #### C BC #### [facility] [address] [place] [address] Dr. Kvng Smith IG # 0.01 10e3/ul Normal 0.00-0.03 [facility] Comment on above: Performed By: #### C BC #### [facility] [address] [place] [address] Dr. Kvng Smith IG % 0.2 % Normal 0.0-0.5 [facility] Comment on above: Performed By: #### C BC #### [facility] [address] [place] [address] Dr. Kvng Smith LYMPH # 1.5 103/ul Normal 1.2-3.8 [facility] Comment on above: Performed By: #### C BC #### [facility] [address] [place] [address] Dr. Kvng Smith Lymphocytes/100 WBC (Bld) 26.7 % Normal 20.5-60.0 [facility] Comment on above: Performed By: #### C BC #### [facility] [address] [place] [address] Dr. Kvng Smith MANUAL DIFF REQ NO Normal [facility] Comment on above: Performed By: #### C BC #### [facility] [address] [place] [address] Dr. Kvng Smith MCH (RBC) [Entitic mass] 27.7 pg Normal 25.9-34.0 [facility] Comment on above: Performed By: #### C BC #### [facility] [address] [place] [address] Dr. Kvng Smith MCHC (RBC) [Mass/Vol] 32.5 g/dL Normal 29.9-35.2 [facility] Comment on above: Performed By: #### C BC #### [facility] [address] [place] [address] Dr. Kvng Smith MCV (RBC) [Entitic vol] 85.2 fL Normal 80.0-94.0 [facility] Comment on above: Performed By: #### C BC #### [facility] [address] [place] [address] Dr. Kvng Smith MONO # 0.4 103/ul Normal 0.3-0.8 [facility] Comment on above: Performed By: #### C BC #### [facility] [address] [place] [address] Dr. Kvng Smith Monocytes/100 WBC (Bld) 7.8 % Normal 1.7-12.0 [facility] Comment on above: Performed By: #### C BC #### [facility] [address] [place] [address] Dr. Kvng Smith NEUT # 3.5 103/ul Normal 1.4-6.5 [facility] Comment on above: Performed By: #### C BC #### [facility] [address] [place] [address] Dr. Kvng Smith Neutrophils/100 WBC (Bld) 62.3 % Normal 43.0-75.0 [facility] Comment on above: Performed By: #### C BC #### [facility] [address] [place] [address] Dr. Kvng Smith Platelet mean volume (Bld) [Entitic vol] 9.0 fL Critically low 9.5-13.5 [facility] Comment on above: Performed By: #### C BC #### [facility] [address] [place] [address] Dr. Kvng Smith PLT 184 103/ul Normal 150-450 [facility] Comment on above: Performed By: #### C BC #### [facility] [address] [place] [address] Dr. Kvng Smith RBC 5.53 106/ul Normal 4.70-6.10 [facility] Comment on above: Performed By: #### C BC #### [facility] [address] [address] [address] Kvng Smith WBC 5.7 103/ul Normal 4.0-11.0 [facility] Comment on above: Performed By: #### C BC #### [facility] [address] [place] [address] Dr. Kvng Smith PROF CHEM 8 (BAS METB)on Anion gap [Moles/Vol] 10.2 mmol/L Normal [facility] Comment on above: Performed By: #### B MP #### [facility] [address] [place] [address] Dr. Kvng Smith Calcium [Mass/Vol] 9.0 mg/dL Normal 8.5-10.1 [facility] Comment on above: Performed By: #### B MP #### [facility] [address] [place] [address] Dr. Kvng Smith Chloride [Moles/Vol] 104 mmol/L Normal 98-107 [facility] Comment on above: Performed By: #### B MP #### [facility] [address] [place] [address] Dr. Kvng Smith CO2 [Moles/Vol] 30.9 mmol/L Normal 21.0-32.0 [facility] Comment on above: Performed By: #### B MP #### [facility] [address] [place] [address] Dr. Kvng Smith Creatinine [Mass/Vol] 0.83 mg/dL Normal 0.70-1.30 [facility] Comment on above: Performed By: #### B MP #### [facility] [address] [place] [address] Dr. Kvng Smith EGFR-AF LUXEMBOURGER >60 Normal >=60 [facility] Comment on above: Performed By: #### B MP #### [facility] [address] [place] [address] Dr. Kvng Smith EGFR-NON AF LUXEMBOURGER >60 Normal >=60 [facility] Comment on above: Performed By: #### B MP #### [facility] [address] [address] [address] Kvng Smith Glucose [Mass/Vol] 106 mg/dL Normal 74-106 [facility] Comment on above: Performed By: #### B MP #### [facility] [address] [address] [address] Kvng Smith Potassium [Moles/Vol] 5.1 mmol/L Normal 3.5-5.1 [facility] Comment on above: Performed By: #### B MP #### [facility] [address] [address] [address] Kvng Smith Sodium [Moles/Vol] 140 mmol/L Normal 136-145 [facility] Comment on above: Performed By: #### B MP #### [facility] [address] [address] [address] Kvng Smith Urea nitrogen [Mass/Vol] 14.0 mg/dL Normal 7.0-18.0 [facility] Comment on above: Performed By: #### B MP #### [facility] [address] [address] [address] Kvng Smith Urea nitrogen/Creatinin e [Mass ratio] 16.9 mg/mg Normal [facility] Comment on above: Performed By: #### B MP #### [facility] [address] [address] [address] Kvng Smith US ABD AORTA DIAGNOSTICon [...] by: AARON ARAGON Date: 2022-04-09 17:01 Normal [facility] US CAROTID ART BILon 2 022 US CAROTID ART PREETHI EXAMINATION: US CAROTID [...] by: AARON ARAGON Date: 2022-04-09 17:03 Normal [facility] NM STRESS/REST MULTIon 03-26 NM STRESS/REST MULTI Patient: VIVIENNE BRAMBILA Exam Date: 03/26/2022 : 1960 Gender:M Ordering : DR NEFTALI NEAL . Admission #: [id number] Family : Order #: [id number] CLICK HERE TO VIEW EXAM RADIOLOGY REPORT [...] Aragon MD on 03/26/2022 at 14:16 Normal [facility] Vital Signs Date Time Vital Sign Value Performing Clinician Tico stacy 03-22-2024 14:25-0500 Blood Pressure Location Talon QUILES [facility] 03-22-2024 14:25-0500 Diastolic blood pressure 76 mm[Hg] Talon QUILES [facility] 03-22-2024 14:25-0500 Heart rate 72 /min Talon ALLENL [facility] 03-22-2024 14:25-0500 Respiratory rate 16 /min Talon ALLENL [facility] 03-22-2024 14:25-0500 Systolic blood pressure 120 mm[Hg] Talon QUILES [facility] Encounters Encounter Date Encounter Type Care Provider Facility Start: 03-22-2024 End: 03-22-2024 ambulatory Talon QUILES Facility:[facility] Start: 03-22-2024 End: 03-22-2024 Patient encounter procedure Talon QUILES [facility] Start: 02-24-2024 ambulatory Talon QUILES Facility[facility] Start: 11-15-2023 End: 11-15-2023 ambulatory [facility] Start: 06-01-2022 End: 07-21-[address] NEFTALI NEAL . Facility:[facility] Start: 05-27-2022 End: 05-28-[address] NEFTALI NEAL . Facility:[facility] Start: 04-10-2022 Encounter for other preprocedural examination SERGIO LOGAN [facility] Start: 04-09-2022 End: 04-10-2022 ambulatory LUIS RO Facility:[facility] Start: 04-09-2022 End: 04-10-2022 ambulatory SERGIOJUNITO LOGAN Facility:[facility] Start: 04-09-2022 End: 04-10-2022 Encounter for other preprocedural examination SERGIO LOGAN Facility:[facility] Start: 03-26-2022 End: 03-27-[address] NEFTALI NEAL . Facility: Procedures Date Procedure Procedure Detail Performing Clinician Start: 04-09-2022 Coronary artery bypa ss graft x 1 Talon ALLENJoel Cholecystectomy Talon ALLENJoel Repair of left ingui nal hernia Talon ALLENJoel Payers Date Payer Category Payer Unknown [id number] [id number] [id number] 1960 Unknown [id number] 2.16.84 [id number] 1960 Unknown [id number] 2.16.84 [id number] 1960 Unknown [id number] 2.16.84 [id number] 1960 Unknown [id number] 2.16.84 [id number] 1960 Unknown [id number] 2.16.8 [id number] 1958 Unknown [id number] Social History Date Type Detail Facility Start: 03-22-2024 Tobacco smoking status Ex-smoker (fi nding) [facility] Tobacco smoking status Former sm okeless tobacco user, quit more than 30 days ago [facility] Sex Assigned At Male [facility] Functional Status Date Assessment Result Facility 03-22-2024 Functional Status N/A [facility] Clinical Note 03-22-2024 Note Date & Type Note Facility 03-22-2024 Note General Surgery Offi ce/Clinic Note Chief Complaint consultation for positive occult stool HPI Staff 63 year old male presents on consultation from Dr. Neal for positive occult stool. Denies abdominal or rectal pain. No rectal bleeding or change in bowel habits. Denies nausea or vomiting. No unexplained weight loss. Never had colonoscopy in the past. No known family history of colon cancer. History of Present Illness 63 yo male with h/o CAD, htn, GERD, referred for positive fecal occult blood test; denies change in bms or blood in stools, no abd complaints; abd operations significant for cholecystectomy and LIHR; no previous colonoscopy; on baby asa daily, no NSAID use; former smoker, no fmhx of GI malignancy or IBD. Review of Systems PHQ Score Initial Depression Screen Score: 0 SCORE ROS - Provider Constitutional: no fever, no sweats, no weight loss. Eyes: no glasses, no blurred vision, no visual loss. ENMT: no dentures, no hoarseness, no swallowing difficulties, no hearing loss, no ear infection(s), no nose bleeds. Cardiovascular: normal blood pressure, no chest pain, regular heartbeat, no heart murmur. Respiratory: no shortness of breath, no cough, no asthma, no wheezing. Gastrointestinal: no nausea, no vomiting, no diarrhea, no constipation, no blood in stool, no change in bowel habits, no abdominal pain, no hepatitis. Genitourinary: no kidney stones, no urine infection, no dysuria. Musculoskeletal: no pain, no weakness. Skin: no changing moles, no rash, no skin lumps. Neurologic: no seizures, no epilepsy, no headache. Psychiatric: no emotional or psychiatric problem. Heme/Lymph: no bleeding problems, no anemia, no blood clots, no transfusions. Allergy/Immunologic: no swollen lymph nodes/glands, no IV drug abuse. Other: Additional ROS info: Except as noted in the above Review of Systems and in the History of Present Illness, all other systems have been reviewed and are negative or noncontributory. Physical Exam Vitals & Measurements HR: 72(Peripheral) RR: 16 BP: 120/76 HT: 70 in HT: 177.8 cm WT: 102.1 kg WT: 225.092 lb BMI: 32.3 HEENT: normal conjunctiva, sclera clear, no scleral icterus, EOM intact, PERRLA, oral mucosa moist without lesions. Neck: trachea midline, no mass, symmetric, no thyromegaly or nodules, no adenopathy Respiratory: lungs CTA, respirations non labored. Cardiovascular: regular rate and rhythm, no murmur, no pedal edema or varicosities. Gastrointestinal: obese, soft, non distended, no tenderness, no masses, no palpable hernias, diastasis recti no, no hepatosplenomegaly; normal bs Lymphatic: no cervical adenopathy, no supraclavicular adenopathy. Musculoskeletal: normal gait, digits and nails without infection, nodes, cyanosis, clubbing. Skin: no rashes, no lesions, no ulcers, no subcutaneous nodules, induration. Psychiatric/Neuro: oriented to time, place, person, judgement normal, affect appropriate for age, insight intact, no focal deficits. Tests: labs reviewed, , review of old records completed , Discussed surgical options, risks, and possible complications with patient. Assessment/Plan 1. Positive fecal occult blood test (R19.5: Other fecal abnormalities) plan colonoscopy under anesthesia, informed consent obtained. Follow-up No qualifying data available Problem List/Past Medical History Ongoing AAA (abdominal aortic aneurysm) Arteriosclerosis of coronary artery bypass graft Bilateral stenosis of carotid arteries BMI 32.0-32.9,adult Gastroesophageal reflux disease Hypertension Obesity due to excess calories Positive fecal occult blood test Positive occult stool blood test Historical No qualifying data Procedure/Surgical History CABG x 1 - Coronary artery bypass graft x 1 (04/2022), Cholecystectomy, Repair of left inguinal hernia. Medications aspirin 81 mg Chew Tab, 81 mg= 1 tab(s), Chewed, Daily esomeprazole 40 mg Cap-EC, 40 mg= 1 cap(s), Oral, Daily lisinopril 20 mg Tab, 20 mg= 1 tab(s), Oral, Daily metoprolol succinate 25 mg ER Tab, 12.5 mg= 0.5 tab(s), Oral, Daily rosuvastatin 5 mg Tab, 2.5 mg= 0.5 tab(s), Oral, Daily Allergies No Known Allergies No Known Medication Allergies Social History Alcohol Never., 03/21/2024 Substance Abuse Never., 03/21/2024 Tobacco Former smoker, quit more than 30 days ago Tobacco Use:. Former smokeless tobacco user, quit more than 30 days ago Smokeless Tobacco Use:. Cigarettes, Oral, 1 per day. Started age 18.0 Years. Stopped age 57 Years., 03/22/2024 Family History Heart disease: Father and Brother. [facility] Comment on above: Result Comment: Elec tronically Signed By: ETTA SOTO, Talon Henning\Date and Time Signed: 03/22/24 15:20 EST Progress note 11-15-2023 Note Date & Type Note Facility 11-15-2023 Note [facility] Note Chief Complaint: Patient here [...] usually runs in the 130's/80's. HPI: Vivienne Brambila is a 63 y.o. male With a [...] no acute distress. HEAD: atraumatic, normocephalic. EYES: KALIA, EOMI. NECK: trachea midline, no JVD present, [...] PSYCH: appropriate mood, affect, and judgement. Investigations: [facility] [address] [place] [address] [phone] (fax) Echocardiogram-[facility] Name: VIVIENNE BRAMBILA Study Date: 04/20/2022 03:17 PM B/P: / HR: Date of : 1960 Location: [facility] Height: 70 in. Age: 61 year(s) Patient Room : [facility] Weight: 226 lb. Gender: Male [...] coronary artery dis (more content not included)... [facility] Evaluation + Plan note Note Date & Type Note Facility Evaluation + Plan note No data available for this section [facility] Hospital Discharge instructions Note Date & Type Note Facility Hospital Discharge instructions No data available for this section [facility] Progress note Note Date & Type Note Facility Progress note No data available for this section [facility] Summary Purpose Family History No Family History Records FoundNo Family History Records Found No data available for this section No Family History Records Found Advance Directives No Advanced Directives Records FoundNo Advanced Directives Records FoundNo Advanced Directives Records Found Additional Source Comments (unrecognized sect ion and content) No Status Records FoundNo Status Records FoundNo Status Records Found INFORMATION SOURCE (unrecogn ized section and content) DATE CREATED AUTHOR 07/22/2022 [facility] DATE CREATED AUTHOR AUTHOR'S ORGANIZ ATION 11/15/2023 [facility] DATE CREATED AUTHOR AUTHOR'S ORGANIZ ATION 03/23/2024 [facility] Patient Care team informatio n (unrecognized section and content) Personnel Name: Neftali Neal MD Address: Address: [address] [place] [address] FOR RECORDS PERTAINING TO PATIENTS WHO ARE [...] BE BASED ON THE PRIMARY CLINICAL RECORDS. [facility] [employer] [facility]. provides no warranty or guarantee of the accuracy or completeness of information in this document.
== END 2024-04-13 07:44 | disposition home or self-care (01) ==
LOC: PST 07:43
PROVIDERS: PCP Family Medicine; Visit Provider Surgery
DX: Z01.818 Encounter for other preprocedural examination (principal); R19.5 Other fecal abnormalities

== ENCOUNTER 2024-04-19 08:04 | Day surgery (SDC) | payer BC, SELFPAY ==
--- NOTE | 2024-04-19 | OP_ITS ---
OPERATION DATE: 04/19/2024 PREOPERATIVE DIAGNOSIS: Positive fecal occult blood test. POSTOPERATIVE DIAGNOSIS: 5 mm sigmoid polyp as well as moderate sigmoid diverticulosis. PROCEDURE: Colonoscopy to cecum with cold snare polypectomy x1 for sigmoid polyp. SURGEON: Talon Stern M.D. ANESTHESIA: Monitored anesthesia care. ESTIMATED BLOOD LOSS: Less than 1 mL. INDICATIONS AND CONSENT: Patient is a 63-year-old male presents for positive fecal occult blood test. No previous colonoscopy. Indications, risks, benefits, alternatives of proceeding with colonoscopy were explained extensively to the patient, including the risks of bleeding, colon perforation or anesthetic complications. All of his questions were answered. Informed consent was obtained. PROCEDURE: Patient brought to the operating room, placed in the left lateral decubitus position. Monitored anesthesia care was provided. Rectal exam was performed which showed no masses or blood. The scope was inserted into the anal canal. Under direct visualization was advanced. It was advanced to the cecum where cecal markings were clearly identified. There was noted to be a good prep. Upon withdrawal of the scope, mucosal surfaces were carefully examined. There were no mass lesions or inflammatory changes. There was moderate sigmoid diverticulosis without inflammatory changes or scarring. Within the sigmoid colon, there was noted to be a 5 mm sessile polyp that was removed with cold snare with good hemostasis. The scope was retroflexed in the anal canal. There was no significant hemorrhoidal disease. Scope was then withdrawn. Patient tolerated procedure well, was sent to recovery room in good condition. Follow up screening colonoscopy should be in five years, but may change based on the pathology report. CC: Hector Neal M.D. [facility]EM[facility]
--- OUTSIDE RECORDS SUMMARY | 2024-04-19 08:07 | XMS_ITS | CCD ---
Author Organization [facility] Care Team Providers Care News Writer Name Role Phone ZUNILAD Mejia, DR ILNDSAY Primary Care Unavailable ELTADUKE, DR RICE Attending [...] Attending Unavailable Neftali Neal Primary Care Physician [phone] Talon QUILES Attending Unavailable Neftali Neal Referring Unavailable Allergies Allergy Classification Reported Allergen(s) Allergy Type Date of Onset Reaction(s) Facility (1 source) No Known Medication Allergies; Translations: [No Known Medication Allergies] Propensity to adverse reactions (disorder) [facility] Repository Medications Current Medications Medication Drug Class(es) [...] disease (6 sources) Atherosclerotic heart disease of [place] coronary artery without angina pectoris; Translations: [ASHD [place] 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 Normal [facility] Office Visiton 11-15-2023 Follow-up visit [id number] Alexandrea Brambila 1960 M Date Provider Department Center 11/15/2023 [id number] JARA Mer [facility] Family History Problem Relation Age of Onset Heart attack Father 46 Heart attack Brother 55 Coronary artery disease Brother Other Brother Family Status - Relation Status Age at Father Brother Alive Level of Service:56982 AL OFFICE/OUTPATIENT ESTABLISHED MOD MDM 30 MIN Normal [facility] CBC AUTO DIFFon 05-27-2022 BASO # 0.1 103/ul Normal 0.0-0.1 [facility] Comment on above: Performed By: #### C BC #### [facility] [address] [place] [address] Dr. Kvng Smith Basophils/100 WBC (Bld) 0.9 % Normal 0.2-2.0 [facility] Comment on above: Performed By: #### C BC #### [facility] [address] [address] [address] Kvng Smith EO # 0.3 103/ul Normal 0.0-0.7 [facility] Comment on above: Performed By: #### C BC #### [facility] [address] [place] [address] Dr. Kvng Smith Eosinophils/100 WBC (Bld) 4.2 % Normal 0.9-7.0 [facility] Comment on above: Performed By: #### C BC #### [facility] [address] [place] [address] Dr. Kvng Smith Erythrocyte distribution width (RBC) [Ratio] 14.2 % Normal 11.0-15.0 [facility] Comment on above: Performed By: #### C BC #### [facility] [address] [place] [address] Dr. Kvng Smith Hematocrit (Bld) [Volume fraction] 43.2 % Normal 42.0-54.0 [facility] Comment on above: Performed By: #### C BC #### [facility] [address] [place] [address] Dr. Kvng Smith Hemoglobin (Bld) [Mass/Vol] 14.0 g/dL Normal 14.0-18.0 [facility] Comment on above: Performed By: #### C BC #### [facility] [address] [place] [address] Dr. Kvng Smith IG # 0.02 10e3/ul Normal 0.00-0.03 [facility] Comment on above: Performed By: #### C BC #### [facility] [address] [place] [address] Dr. Kvng Smith IG % 0.3 % Normal 0.0-0.5 [facility] Comment on above: Performed By: #### C BC #### [facility] [address] [place] [address] Dr. Kvng Smith LYMPH # 1.7 103/ul Normal 1.2-3.8 [facility] Comment on above: Performed By: #### C BC #### [facility] [address] [place] [address] Dr. Kvng Smith Lymphocytes/100 WBC (Bld) 25.2 % Normal 20.5-60.0 [facility] Comment on above: Performed By: #### C BC #### [facility] [address] [place] [address] Dr. Kvng Smith MANUAL DIFF REQ NO Normal [facility] Comment on above: Performed By: #### C BC #### [facility] [address] [place] [address] Dr. Kvng Smith MCH (RBC) [Entitic mass] 27.8 pg Normal 25.9-34.0 [facility] Comment on above: Performed By: #### C BC #### [facility] [address] [place] [address] Dr. Kvng Smith MCHC (RBC) [Mass/Vol] 32.4 g/dL Normal 29.9-35.2 [facility] Comment on above: Performed By: #### C BC #### [facility] [address] [place] [address] Dr. Kvng Smith MCV (RBC) [Entitic vol] 85.7 fL Normal 80.0-94.0 [facility] Comment on above: Performed By: #### C BC #### [facility] [address] [place] [address] Dr. Kvng Smith MONO # 0.5 103/ul Normal 0.3-0.8 [facility] Comment on above: Performed By: #### C BC #### [facility] [address] [place] [address] Dr. Kvng Smith Monocytes/100 WBC (Bld) 7.7 % Normal 1.7-12.0 [facility] Comment on above: Performed By: #### C BC #### [facility] [address] [place] [address] Dr. Kvng Smith NEUT # 4.2 103/ul Normal 1.4-6.5 [facility] Comment on above: Performed By: #### C BC #### [facility] [address] [place] [address] Dr. Kvng Smith Neutrophils/100 WBC (Bld) 61.7 % Normal 43.0-75.0 [facility] Comment on above: Performed By: #### C BC #### [facility] [address] [address] [address] Kvng Smith Platelet mean volume (Bld) [Entitic vol] 8.9 fL Critically low 9.5-13.5 [facility] Comment on above: Performed By: #### C BC #### [facility] [address] [place] [address] Dr. Kvng Smith PLT 208 103/ul Normal 150-450 [facility] Comment on above: Performed By: #### C BC #### [facility] [address] [place] [address] Dr. Kvng Smith RBC 5.04 106/ul Normal 4.70-6.10 [facility] Comment on above: Performed By: #### C BC #### [facility] [address] [place] [address] Dr. Kvng Smith WBC 6.9 103/ul Normal 4.0-11.0 [facility] Comment on above: Performed By: #### C BC #### [facility] [address] [place] [address] Dr. Kvng Smith LIPID PROFILEon 05-27-2022 CHOL-HDL RATIO NORM SEE BELOW Normal [facility] Comment on above: Result Comment: 3.3 - 4.4 LOW RISK 4.4 - 7.1 AVERAGE RISK 7.1 - 11.0 MODERATE RISK >11.0 HIGH RISK Performed By: #### L IPID, CMP #### [facility] [address] [place] [address] Dr. Kvng Smith Cholesterol [Mass/Vol] 135 mg/dL Normal <=200 [facility] Comment on above: Performed By: #### L IPID, CMP #### [facility] [address] [place] [address] Dr. Kvng Smith Cholesterol in HDL [Mass/Vol] 38 mg/dL Critically low 40-60 [facility] Comment on above: Performed By: #### L IPID, CMP #### [facility] [address] [place] [address] Dr. Kvng Smith Cholesterol in LDL [Mass/Vol] 61.2 mg/dL Normal [facility] Comment on above: Performed By: #### L IPID, CMP #### [facility] [address] [address] [address] Kvng Smith Cholesterol.total/ Cholesterol in HDL [Mass ratio] 3.6 {ratio} Normal [facility] Comment on above: Performed By: #### L IPID, CMP #### [facility] [address] [address] [address] Kvng Smith HDL NORMAL > or = 60 mg/dl - LO W CARDIOVASCULAR RISK <40 mg/dl - HIGH CARDIOVASCULAR RISK Normal [facility] Comment on above: Performed By: #### L IPID, CMP #### [facility] [address] [place] [address] Dr. Kvng Smith LDL CALC NORMAL SEE BELOW Normal [facility] Comment on above: Result Comment: <100 mg/dl OPTIMAL 100 - 129 mg/dl NEAR OR ABOVE OPTIMAL 130 - 159 mg/dl BORDERLINE HIGH 160 - 189 mg/dl HIGH >190 mg/dl VERY HIGH Performed By: #### L IPID, CMP #### [facility] [address] [address] [address] Kvng Smith Triglyceride [Mass/Vol] 179 mg/dL Critically high <=150 [facility] Comment on above: Performed By: #### L IPID, CMP #### [facility] [address] [address] [address] Kvng Smith VLDL CALC 35.8 mg/dL Normal [facility] Comment on above: Performed By: #### L IPID, CMP #### [facility] [address] [address] [address] Kvng Smith PROF 14(COMP METB)on 023 Albumin [Mass/Vol] 3.6 g/dL Normal 3.4-5.0 [facility] Comment on above: Performed By: #### L IPID, CMP #### [facility] [address] [address] [address] Kvng Smith Albumin/Globulin [Mass ratio] 1.2 {ratio} Normal [facility] Comment on above: Performed By: #### L IPID, CMP #### [facility] [address] [address] [address] Kvng Smith ALP [Catalytic activity/Vol] 129 U/L Critically high 46-116 [facility] Comment on above: Performed By: #### L IPID, CMP #### [facility] [address] [address] [address] Kvng Smith ALT [Catalytic activity/Vol] 32 U/L Normal 16-63 [facility] Comment on above: Performed By: #### L IPID, CMP #### [facility] [address] [address] [address] Kvng Smith Anion gap [Moles/Vol] 8.8 mmol/L Normal [facility] Comment on above: Performed By: #### L IPID, CMP #### [facility] [address] [address] [address] Kvng Smith AST [Catalytic activity/Vol] 16 U/L Normal 15-37 [facility] Comment on above: Performed By: #### L IPID, CMP #### [facility] [address] [address] [address] Kvng Smith Bilirubin [Mass/Vol] 0.5 mg/dL Normal 0.2-1.0 [facility] Comment on above: Performed By: #### L IPID, CMP #### [facility] [address] [address] [address] Kvng Smith Calcium [Mass/Vol] 9.3 mg/dL Normal 8.5-10.1 [facility] Comment on above: Performed By: #### L IPID, CMP #### [facility] [address] [address] [address] Kvng Smith Chloride [Moles/Vol] 104 mmol/L Normal 98-107 [facility] Comment on above: Performed By: #### L IPID, CMP #### [facility] [address] [address] [address] Kvng Smith CO2 [Moles/Vol] 32.1 mmol/L Critically high 21.0-32.0 [facility] Comment on above: Performed By: #### L IPID, CMP #### [facility] [address] [place] [address] Dr. Kvng Smith Creatinine [Mass/Vol] 0.91 mg/dL Normal 0.70-1.30 [facility] Comment on above: Performed By: #### L IPID, CMP #### [facility] [address] [place] [address] Dr. Kvng Smith EGFR-AF SALVADOREAN >60 Normal >=60 [facility] Comment on above: Performed By: #### L IPID, CMP #### [facility] [address] [place] [address] Dr. Kvng Smith EGFR-NON AF SALVADOREAN >60 Normal >=60 [facility] Comment on above: Performed By: #### L IPID, CMP #### [facility] [address] [place] [address] Dr. Kvng Smith Globulin (S) [Mass/Vol] 3.0 g/dL Normal [facility] Comment on above: Performed By: #### L IPID, CMP #### [facility] [address] [place] [address] Dr. Kvng Smith Glucose [Mass/Vol] 108 mg/dL Critically high 74-106 [facility] Comment on above: Performed By: #### L IPID, CMP #### [facility] [address] [place] [address] Dr. Kvng Smith Potassium [Moles/Vol] 3.9 mmol/L Normal 3.5-5.1 [facility] Comment on above: Performed By: #### L IPID, CMP #### [facility] [address] [place] [address] Dr. Kvng Smith Protein [Mass/Vol] 6.6 g/dL Normal 6.4-8.2 [facility] Comment on above: Performed By: #### L IPID, CMP #### [facility] [address] [place] [address] Dr. Kvng Smith Sodium [Moles/Vol] 141 mmol/L Normal 136-145 [facility] Comment on above: Performed By: #### L IPID, CMP #### [facility] [address] [place] [address] Dr. Kvng Smith Urea nitrogen [Mass/Vol] 14.0 mg/dL Normal 7.0-18.0 [facility] Comment on above: Performed By: #### L IPID, CMP #### [facility] [address] [place] [address] Dr. Kvng Smith Urea nitrogen/Creatinin e [Mass ratio] 15.4 mg/mg Normal [facility] Comment on above: Performed By: #### L IPID, CMP #### [facility] [address] [place] [address] Dr. Kvng Smith CBC AUTO DIFFon 04-09-2022 BASO # 0.0 103/ul Normal 0.0-0.1 [facility] Comment on above: Performed By: #### C BC #### [facility] [address] [place] [address] Dr. Kvng Smith Basophils/100 WBC (Bld) 0.7 % Normal 0.2-2.0 [facility] Comment on above: Performed By: #### C BC #### [facility] [address] [place] [address] Dr. Kvng Smith EO # 0.1 103/ul Normal 0.0-0.7 [facility] Comment on above: Performed By: #### C BC #### [facility] [address] [place] [address] Dr. Kvng Smith Eosinophils/100 WBC (Bld) 2.3 % Normal 0.9-7.0 [facility] Comment on above: Performed By: #### C BC #### [facility] [address] [place] [address] Dr. Kvng Smith Erythrocyte distribution width (RBC) [Ratio] 12.9 % Normal 11.0-15.0 [facility] Comment on above: Performed By: #### C BC #### [facility] [address] [place] [address] Dr. Kvng Smith Hematocrit (Bld) [Volume fraction] 47.1 % Normal 42.0-54.0 [facility] Comment on above: Performed By: #### C BC #### [facility] [address] [place] [address] Dr. Kvng Smith Hemoglobin (Bld) [Mass/Vol] 15.3 g/dL Normal 14.0-18.0 [facility] Comment on above: Performed By: #### C BC #### [facility] [address] [place] [address] Dr. Kvng Smith IG # 0.01 10e3/ul Normal 0.00-0.03 [facility] Comment on above: Performed By: #### C BC #### [facility] [address] [place] [address] Dr. Kvng Smith IG % 0.2 % Normal 0.0-0.5 [facility] Comment on above: Performed By: #### C BC #### [facility] [address] [place] [address] Dr. Kvng Smith LYMPH # 1.5 103/ul Normal 1.2-3.8 [facility] Comment on above: Performed By: #### C BC #### [facility] [address] [place] [address] Dr. Kvng Smith Lymphocytes/100 WBC (Bld) 26.7 % Normal 20.5-60.0 [facility] Comment on above: Performed By: #### C BC #### [facility] [address] [place] [address] Dr. Kvng Smith MANUAL DIFF REQ NO Normal [facility] Comment on above: Performed By: #### C BC #### [facility] [address] [place] [address] Dr. Kvng Smith MCH (RBC) [Entitic mass] 27.7 pg Normal 25.9-34.0 [facility] Comment on above: Performed By: #### C BC #### [facility] [address] [place] [address] Dr. Kvng Smith MCHC (RBC) [Mass/Vol] 32.5 g/dL Normal 29.9-35.2 [facility] Comment on above: Performed By: #### C BC #### [facility] [address] [place] [address] Dr. Kvng Smith MCV (RBC) [Entitic vol] 85.2 fL Normal 80.0-94.0 [facility] Comment on above: Performed By: #### C BC #### [facility] [address] [place] [address] Dr. Kvng Smith MONO # 0.4 103/ul Normal 0.3-0.8 [facility] Comment on above: Performed By: #### C BC #### [facility] [address] [place] [address] Dr. Kvng Smith Monocytes/100 WBC (Bld) 7.8 % Normal 1.7-12.0 [facility] Comment on above: Performed By: #### C BC #### [facility] [address] [place] [address] Dr. Kvng Smith NEUT # 3.5 103/ul Normal 1.4-6.5 [facility] Comment on above: Performed By: #### C BC #### [facility] [address] [place] [address] Dr. Kvng Smith Neutrophils/100 WBC (Bld) 62.3 % Normal 43.0-75.0 [facility] Comment on above: Performed By: #### C BC #### [facility] [address] [place] [address] Dr. Kvng Smith Platelet mean volume (Bld) [Entitic vol] 9.0 fL Critically low 9.5-13.5 [facility] Comment on above: Performed By: #### C BC #### [facility] [address] [place] [address] Dr. Kvng Smith PLT 184 103/ul Normal 150-450 [facility] Comment on above: Performed By: #### C BC #### [facility] [address] [place] [address] Dr. Kvng Smith RBC 5.53 106/ul Normal 4.70-6.10 [facility] Comment on above: Performed By: #### C BC #### [facility] [address] [address] [address] Kvng Smith WBC 5.7 103/ul Normal 4.0-11.0 [facility] Comment on above: Performed By: #### C BC #### [facility] [address] [place] [address] Dr. Kvng Smith PROF CHEM 8 (BAS METB)on Anion gap [Moles/Vol] 10.2 mmol/L Normal [facility] Comment on above: Performed By: #### B MP #### [facility] [address] [place] [address] Dr. Kvng Smith Calcium [Mass/Vol] 9.0 mg/dL Normal 8.5-10.1 [facility] Comment on above: Performed By: #### B MP #### [facility] [address] [place] [address] Dr. Kvng Smith Chloride [Moles/Vol] 104 mmol/L Normal 98-107 [facility] Comment on above: Performed By: #### B MP #### [facility] [address] [place] [address] Dr. Kvng Smith CO2 [Moles/Vol] 30.9 mmol/L Normal 21.0-32.0 [facility] Comment on above: Performed By: #### B MP #### [facility] [address] [place] [address] Dr. Kvng Smith Creatinine [Mass/Vol] 0.83 mg/dL Normal 0.70-1.30 [facility] Comment on above: Performed By: #### B MP #### [facility] [address] [place] [address] Dr. Kvng Smith EGFR-AF SALVADOREAN >60 Normal >=[address] [facility] Comment on above: Performed By: #### B MP #### [facility] [address] [place] [address] Dr. Kvng Smith EGFR-NON AF SALVADOREAN >60 Normal >=60 [facility] Comment on above: Performed By: #### B MP #### [facility] [address] [address] [address] Kvng Smith Glucose [Mass/Vol] 106 mg/dL Normal 74-106 [facility] Comment on above: Performed By: #### B MP #### [facility] [address] [address] [address] Kvng Smith Potassium [Moles/Vol] 5.1 mmol/L Normal 3.5-5.1 [facility] Comment on above: Performed By: #### B MP #### [facility] [address] [address] [address] Kvng Smith Sodium [Moles/Vol] 140 mmol/L Normal 136-145 [facility] Comment on above: Performed By: #### B MP #### [facility] [address] [address] [address] Kvng Smith Urea nitrogen [Mass/Vol] 14.0 mg/dL Normal 7.0-18.0 [facility] Comment on above: Performed By: #### B MP #### [facility] [address] [address] [address] Kvng Smith Urea nitrogen/Creatinin e [Mass ratio] 16.9 mg/mg Normal [facility] Comment on above: Performed By: #### B MP #### [facility] [address] [address] [address] Kvng Smith US ABD AORTA DIAGNOSTICon [...] by: AARON ARAGON Date: 2022-04-09 17:01 Normal [facility] US CAROTID ART BILon 2 022 US [...] by: AARON ARAGON Date: 2022-04-09 17:03 Normal [facility] NM STRESS/REST MULTIon 03-26 NM STRESS/REST MULTI Patient: VIVIENNE BRAMBILA Exam Date: 03/26/2022 : 1960 Gender:M Ordering : DR NEFTALI NEAL . Admission #: [id number] Family : Order #: [id number] CLICK HERE TO VIEW EXAM RADIOLOGY REPORT [...] Aragon MD on 03/26/2022 at 14:16 Normal [facility] Vital Signs Date Time Vital Sign Value Performing Clinician Tico stacy 03-22-2024 14:25-0500 Blood Pressure Location Talon QUILES [facility] 03-22-2024 14:25-0500 Diastolic blood pressure 76 mm[Hg] Talon QUILES [facility] 03-22-2024 14:25-0500 Heart rate 72 /min Talon ALLENL [facility] 03-22-2024 14:25-0500 Respiratory rate 16 /min Talon ALLENL [facility] 03-22-2024 14:25-0500 Systolic blood pressure 120 mm[Hg] Talon QUILES [facility] Encounters Encounter Date Encounter Type Care Provider Facility Start: 03-22-2024 End: 03-22-2024 ambulatory Talon QUILES Facility:[facility] Start: 03-22-2024 End: 03-22-2024 Patient encounter procedure Talon QUILES [facility] Start: 02-24-2024 ambulatory Talon QUILES Facility[facility] Start: 11-15-2023 End: 11-15-2023 ambulatory FARRAH [facility] Start: 06-01-2022 End: 07-21-[address] NEFTALI NEAL . Facility:[facility] Start: 05-27-2022 End: 05-28-[address] NEFTALI NEAL . Facility:[facility] Start: 04-10-2022 Encounter for other preprocedural examination SERGIO LOGAN [facility] Start: 04-09-2022 End: 04-10-2022 ambulatory LUIS RO Facility:[facility] Start: 04-09-2022 End: 04-10-2022 ambulatory SERGIOJUNITO LOGAN Facility:[facility] Start: 04-09-2022 End: 04-10-2022 Encounter for other preprocedural examination SERGIO LOGAN Facility:[facility] Start: 03-26-2022 End: 03-27-[address] NEFTALI NEAL . Facility: Procedures Date Procedure Procedure Detail Performing Clinician Start: 04-09-2022 Coronary artery bypa ss graft x 1 Talno ALLENJoel Cholecystectomy Talon ALLENJoel Repair of left ingui nal hernia Talon ALLENJoel Payers Date Payer Category Payer Unknown [id number] 1960 Unknown [id number] [id number] [id number] 1960 Unknown [id number] [id number] [id number] 1960 Unknown [id number] 2.16.84 [id number] 1960 Unknown [id number] 2.16.84 [id number] 1960 Unknown [id number] [id number] 1958 Unknown [id number] Social History Date Type Detail Facility Start: 03-22-2024 Tobacco smoking status Ex-smoker (fi nding) [facility] Tobacco smoking status Former sm okeless tobacco user, quit more than 30 days ago [facility] Sex Assigned At Male [facility] Functional Status Date Assessment Result Facility 03-22-2024 Functional Status N/A [facility] Clinical Note 03-22-2024 Note Date & Type [...] Family History Heart disease: Father and Brother. [facility] Comment on above: Result Comment: Elec tronically Signed By: ETTA SOTO, Talon Henning\Date and Time Signed: 03/22/24 15:20 EST Progress note 11-15-2023 Note Date & Type Note Facility 11-15-2023 Note [facility] Cardiology Clinic Note Chief Complaint: Patient [...] PSYCH: appropriate mood, affect, and judgement. Investigations: [facility] [address] [place] [address] [phone] (fax) Echocardiogram-[facility] Name: VIVIENNE BRAMBILA Study Date: 04/20/2022 03:17 PM B/P: / HR: Date of : 1960 Location: [facility] Height: 70 in. Age: 61 year(s) Patient Room : [facility] VASCULAR POOL Weight: 226 lb. Gender: Male [...] coronary artery dis (more content not included)... [facility] Evaluation + Plan note Note Date & Type Note Facility Evaluation + Plan note No data available for this section [facility] Hospital Discharge instructions Note Date & Type Note Facility Hospital Discharge instructions No data available for this section [facility] Progress note Note Date & Type Note Facility Progress note No data available for this section [facility] Summary Purpose Family History No Family History [...] content) DATE CREATED AUTHOR 07/22/2022 [facility] DATE CREATED AUTHOR AUTHOR'S ORGANIZ ATION 11/15/2023 [facility] DATE CREATED AUTHOR AUTHOR'S ORGANIZ ATION 03/23/2024 [facility] Patient Care team informatio n (unrecognized section and content) Personnel Name: Neftali Neal MD Address: Address: [address] [place] [address] FOR RECORDS PERTAINING TO PATIENTS WHO ARE [...] BE BASED ON THE PRIMARY CLINICAL RECORDS. [facility]. provides no warranty or guarantee of the accuracy or completeness of information in this document.
[2024-04-19 08:21] VITALS: BP 183/123; PULSE 99; TEMP 36.3; O2SAT 97; BMI 31.8
[2024-04-19] MEDS: 0.9 % SODIUM CHLORIDE 500 ML 50 ML IV (08:29)
[2024-04-19] MEDS: LABETALOL HCL 20 MG/4 ML SYRINGE 5 MG IVP (08:41)
[2024-04-19 08:54] VITALS: BP 144/90
[2024-04-19 10:53] VITALS: BP 111/75; PULSE 78; TEMP 36.5; O2SAT 95
[2024-04-19 11:08] VITALS: BP 128/79; PULSE 70; O2SAT 94
[2024-04-19 11:23] VITALS: BP 146/87; PULSE 69; TEMP 36.4; O2SAT 97
== END 2024-04-19 11:23 | disposition home or self-care (01) ==
PROVIDERS: PCP Family Medicine; Visit Provider Surgery
PROC: (CPT 811; principal; 2024-04-19 09:10)
DX: R19.5 Other fecal abnormalities (principal); K57.30 Diverticulosis of large intestine without perforation or abscess without bleeding; D12.5 Benign neoplasm of sigmoid colon; I25.10 Atherosclerotic heart disease of native coronary artery without angina pectoris; I10 Essential (primary) hypertension; K21.9 Gastro-esophageal reflux disease without esophagitis; Z87.891 Personal history of nicotine dependence; Z95.1 Presence of aortocoronary bypass graft; Z90.49 Acquired absence of other specified parts of digestive tract; E66.01 Morbid (severe) obesity due to excess calories; Z68.31 Body mass index [BMI] 31.0-31.9, adult
CPT/HCPCS: 45385; 88305; J1920; J2704

== ENCOUNTER 2024-09-18 11:14 | Outpatient (OUT) | payer BC, SELFPAY ==
--- NOTE | 2024-09-18 | NM_ITS ---
Patient Name: VIVIENNE HEALY MR#: [id number] : 1960 Exam Date: 09/18/2024 Ordering Doctor: DR NEFTALI MAURO . RADIOLOGY REPORT PROCEDURE: NM YANNICK PERF SPECT REST STR COMPARISON: None. INDICATIONS: CHEST DISCOMFORT TECHNIQUE: Exam Description: Stress/Rest one day protocol gated SPECT Rest Imagin.0 mCi Tc-99m Cardiolite IV on 09/18/2024 Stress Imaging 30.6 mCi Tc-99m Cardiolite IV on 09/18/2024 Exercise Protocol: Alex Heart Rate (bpm): Rest: 65 Max: 139 PMHR: 88 Blood Pressure: Rest: 150/98 Max: 180/98 Exercise Time: Minutes: 4 Seconds: 21 Stage Reached: Stage: 2 Mets 7.0 Symptoms: Rest and peak stress ECG findings were pending, and the exercise portion of the study was pending per attending physician [facility]. For more details, please see separate cardiac stress test report. FINDINGS: QUALITY OF STUDY: Good PERFUSION DEFECT: None LOCATION: N/A SIZE: N/A SEVERITY: N/A TYPE: N/A WALL MOTION: Normal wall motion LV SIZE: 114 mL. TID / TCD: 0.9 LVEF: Calculated EF 57%. SUMMARY: Myocardial perfusion imaging study is normal CONCLUSION: 1. Normal myocardial perfusion with soft tissue attenuation 2. Global left ventricular systolic function is normal 3. No significant transient ischemic dilatation Dictated by: Yulissa Rodrigues M.D. on 09/20/2024 at 15:51 Approved by: Yulissa Rodrigues M.D. on 09/20/2024 at 15:53
--- OUTSIDE RECORDS SUMMARY | 2024-09-18 11:27 | XMS_ITS | CCD ---
Author Organization [facility] Care Team Providers Care Hair Blender Name Role Phone ZUNILDA Mejia, DR LINDSAY Primary Care Unavailable ELTAHAWY, DR RICE Attending Unavailable ELTAHAWY, DR RICE Admitting Unavailable ELTAHAWY, DR RICE Consulting Unavailable HOY ., DR LINDSAY Primary Care Unavailable MISC, DR JACOBSON Attending Unavailable MISC, DR JACOBSON Admitting Unavailable MISC, DR JACOBSON Consulting Unavailable JIALUIS Attending Unavailable LUIS RO Admitting Unavailable ZUNILDA ., DR LINDSAY Primary Care Unavailable LUIS RO Consulting Unavailable SERGIO LOGAN Admitting Unavailable MARGO, DR AARON Diallo Consulting Unavailable SERGIO LOGAN Attending Unavailable ZUNILDA ., DR LINDSAY Primary Care Unavailable SERGIO LOGAN Consulting Unavailable ZUNILDA ., DR LINDSAY Consulting Unavailable DILLANY ., DR LINDSAY Attending Unavailable HOY ., DR LINDSAY Admitting Unavailable HOY ., DR LINDSAY Primary Care Unavailable WEST, DR AARON Diallo Consulting Unavailable MAREK, FARRAHAB Attending Unavailable Neftali Neal Primary Care Physician Talon QUILES Attending Unavailable Neftali Neal Referring Unavailable Talon QUILES Attending Unavailable Talon QUILES Attending Unavailable Allergies Allergy Classification Reported Allergen(s) Allergy Type Date of Onset Reaction(s) Facility (1 source) No Known Medication Allergies; Translations: [No Known Medication Allergies] Propensity to adverse reactions (disorder) [facility] Repository Medications Current Medications Medication Drug Class(es) Dates Sig (Normalized) Sig (Original) aspirin 81 mg chewable tablet (2 sources) Platelet Aggregation Inhibitor, Nonsteroidal Anti-inflammatory Drug Start: 02-29-2024 aspirin 81 mg Chew Tab 81 mg = 1 tab(s), Chewed, Daily, Refills(s) 0 Start Date: 02/29/24 Status: Ordered esomeprazole 40 mg delayed release oral capsule (2 sources) Proton Pump Inhibitor Start: 02-29-2024 take 1 capsule by mouth once daily esomeprazole 40 mg Cap-EC 40 mg = 1 cap(s), Oral, Daily, Refills(s) 0 Start Date: 02/29/24 Status: Ordered lisinopril 20 mg oral tablet (2 sources) Angiotensin Converting Enzyme Inhibitor Start: 02-29-2024 take 1 tablet by mouth once daily lisinopril 20 mg Tab 20 mg = 1 tab(s), Oral, Daily, Refills(s) 0 Start Date: 02/29/24 Status: Ordered 24 hr metoprolol succinate 25 mg extended release oral tablet (2 sources) beta-Adrenergic Jorge Start: 02-29-2024 metoprolol succinate 25 mg ER Tab 12.5 mg = 0.5 tab(s), Oral, Daily, Refills(s) 0 Start Date: 02/29/24 Status: Ordered rosuvastatin calcium 5 mg oral tablet (2 sources) HMG-CoA Reductase Inhibitor Start: 02-29-2024 take 2.5 mg by mouth once daily rosuvastatin 5 mg Tab 2.5 mg = 0.5 tab(s), Oral, Daily, Refills(s) 0 Start Date: 02/29/24 Status: Ordered Problems Active Problems Problem Classification Problem Date Documented Da te Episodic/Chronic Aortic; peripheral; and visceral artery aneurysms (2 sources) Abdominal aortic aneurysm 02-29-2024 Chronic Cardiac dysrhythmias (2 sources) Palpitations; Translations: [Palpitations] Onset: 4 Episodic Complication of device; implant or graft (2 sources) Arteriosclerosis of coronary artery bypass graft 02-29-2024 Chronic Coronary atherosclerosis and other heart disease (6 sources) Atherosclerotic heart disease of [place] coronary artery without angina pectoris; Translations: [ASHD [place] W/O ANGINA PECTORIS] Onset: 3 Chronic Coronary atherosclerosis and other heart disease (4 sources) Presence of aortocoronary bypass graft; Translations: [PRESENCE AORTOCORONARY BYPASS GRAFT] Onset: 3 Episodic Disorders of lipid metabolism (2 sources) Hyperlipidemia, unspecified; Translations: [Hyperlipidemia, unspecified] Onset: 4 Chronic Diverticulosis and diverticulitis (3 sources) Diverticula of intestine; Translations: [Diverticulosis of large intestine without perforation or abscess without bleeding] Onset: 5 Chronic Esophageal disorders (2 sources) Gastroesophageal reflux disease Onset: 2 02-29-2024 Chronic Essential hypertension (2 sources) Hypertensive disorder 02-29-2024 Chronic Occlusion or stenosis of precerebral arteries (3 sources) Occlusion and stenosis of bilateral carotid arteries; Translations: [Bilateral stenosis of carotid arteries] Onset: 9 02-29-2024 Chronic Other and unspecified benign neoplasm (2 sources) Benign neoplasm of sigmoid colon; Translations: [Benign neoplasm of sigmoid colon] Onset: 5 Episodic Other gastrointestinal disorders (1 source) Abnormal feces; Translations: [Other fecal abnormalities] Onset: 4 Episodic Other gastrointestinal disorders (4 sources) Occult blood in stools 02-29-2024 Episodic Other nutritional; endocrine; and metabolic disorders (2 sources) Body mass index 30+ - obesity 03-22-2024 Chronic Other nutritional; endocrine; and metabolic disorders (2 sources) Obesity caused by energy imbalance 02-29-2024 Chronic [...] Results Test Name Value Interpretation Reference Range Kylie del toro General Surgery Office/Clini c Noteon 05-16-2024 General Surgery Office/Clinic Note General Surgery Office/Clinic Note Chief Complaint post operative follow up HPI Staff 27 day post operative follow up post colonoscopy with sigmoid polypectomy. History of Present Illness s/p colonoscopy with polypectomy; 5 mm sigmoid tubular adenoma removed; also moderate sigmoid diverticulosis; patient denies pain or blood in stools. Review of Systems PHQ Score Initial Depression [...] been reviewed and are negative or noncontributory. Assessment/Plan 1. Benign neoplasm of sigmoid colon (D12.5: Benign neoplasm of sigmoid colon) doing well, recommend surveillance colonoscopy in 5 years; call sooner if problems/questions; high fiber diet with daily fiber supplement. 2. Diverticulosis of sigmoid colon (K57.30: Diverticulosis of large intestine without perforation or abscess without bleeding) see # 1 Follow-up No qualifying data available Problem List/Past Medical History Ongoing AAA (abdominal aortic aneurysm) Arteriosclerosis of coronary artery bypass graft Benign neoplasm of sigmoid colon Bilateral stenosis of carotid arteries BMI 32.0-32.9,adult Diverticulosis of sigmoid colon Gastroesophageal reflux disease Hypertension Obesity due to excess calories Positive fecal occult blood test Positive occult stool blood test Sigmoid diverticulosis Historical No qualifying data Procedure/Surgical History Colonoscopy (04/19/2024), CABG x 1 - Coronary artery bypass [...] age 18.0 Years. Stopped age 57 Years., 05/16/2024 Family History Heart disease: Father and Brother. Normal [facility] Comment on above: Result Comment: Elec tronically Signed By: ETTA SOTO, Talon Pacheco\.br\Date and Time Signed: 05/16/24 14:44 EST Reminderson 05-16-2024 Reminders Reminders From: Catherine Huff LPN To: [facility] - Clinical; Sent: 05/16/2024 14:34:46 EST Show up: 03/20/2029 07:00:00 EST Subject: colonoscopy recall Due Date/Time: 04/19/2029 07:00:00 EST Reminder/Recall Patient due for surveillance colonoscopy 04/19/2029 due to history of tubular adenoma. Normal [facility] Ambulatory Visit Summaryon 1 05-22-2023 Ambulatory Visit [...] for choosing us for your care. Normal [facility] Office Visiton 11-15-2023 Follow-up visit [id number] Alexandrea Brambila 1960 M Date Provider Department Center 11/15/2023 271-KRYSTAL JARA SCOTTIE [facility] Family History Problem Relation Age of Onset Heart attack Father 46 Heart attack Brother 55 Coronary artery disease Brother Other Brother Family Status - Relation Status Age at Father Brother Alive Level of Service:87459 [place] OFFICE/OUTPATIENT ESTABLISHED MOD MDM 30 MIN Normal [facility] CBC AUTO DIFFon 05-27-2022 BASO # 0.1 103/ul Normal 0.0-0.1 [facility] Comment on above: Performed By: #### C BC #### [facility] [address] [address] [address] Kvng Smith Basophils/100 WBC (Bld) 0.9 % Normal 0.2-2.0 [facility] Comment on above: Performed By: #### C BC #### [facility] [address] [place] [address] Dr. Kvng Smith EO # 0.3 103/ul Normal 0.0-0.7 [facility] Comment on above: Performed By: #### C BC #### [facility] [address] [place] [address] Dr. Kvng Smith Eosinophils/100 WBC (Bld) 4.2 % Normal 0.9-7.0 [facility] Comment on above: Performed By: #### C BC #### [facility] [address] [place] [address] Dr. Kvng Smith Erythrocyte distribution width (RBC) [Ratio] 14.2 % Normal 11.0-15.0 [facility] Comment on above: Performed By: #### C BC #### [facility] [address] [place] [address] Dr. Kvng Smith Hematocrit (Bld) [Volume fraction] 43.2 % Normal 42.0-54.0 [facility] Comment on above: Performed By: #### C BC #### [facility] [address] [place] [address] Dr. Kvng Smith Hemoglobin (Bld) [Mass/Vol] 14.0 g/dL Normal 14.0-18.0 [facility] Comment on above: Performed By: #### C BC #### [facility] [address] [place] [address] Dr. Kvng Smith IG # 0.02 10e3/ul Normal 0.00-0.03 [facility] Comment on above: Performed By: #### C BC #### [facility] [address] [place] [address] Dr. Kvng Smith IG % 0.3 % Normal 0.0-0.5 [facility] Comment on above: Performed By: #### C BC #### [facility] [address] [place] [address] Dr. Kvng Smith LYMPH # 1.7 103/ul Normal 1.2-3.8 [facility] Comment on above: Performed By: #### C BC #### [facility] [address] [place] [address] Dr. Kvng Smith Lymphocytes/100 WBC (Bld) 25.2 % Normal 20.5-60.0 [facility] Comment on above: Performed By: #### C BC #### [facility] [address] [place] [address] Dr. Kvng Smith MANUAL DIFF REQ NO Normal [facility] Comment on above: Performed By: #### C BC #### [facility] [address] [place] [address] Dr. Kvng Smith MCH (RBC) [Entitic mass] 27.8 pg Normal 25.9-34.0 [facility] Comment on above: Performed By: #### C BC #### [facility] [address] [place] [address] Dr. Kvng Smith MCHC (RBC) [Mass/Vol] 32.4 g/dL Normal 29.9-35.2 [facility] Comment on above: Performed By: #### C BC #### [facility] [address] [place] [address] Dr. Kvng Smith MCV (RBC) [Entitic vol] 85.7 fL Normal 80.0-94.0 [facility] Comment on above: Performed By: #### C BC #### [facility] [address] [place] [address] Dr. Kvng Smith MONO # 0.5 103/ul Normal 0.3-0.8 [facility] Comment on above: Performed By: #### C BC #### [facility] [address] [place] [address] Dr. Kvng Smith Monocytes/100 WBC (Bld) 7.7 % Normal 1.7-12.0 [facility] Comment on above: Performed By: #### C BC #### [facility] [address] [place] [address] Dr. Kvng Smith NEUT # 4.2 103/ul Normal 1.4-6.5 [facility] Comment on above: Performed By: #### C BC #### [facility] [address] [place] [address] Dr. Kvng Smith Neutrophils/100 WBC (Bld) 61.7 % Normal 43.0-75.0 [facility] Comment on above: Performed By: #### C BC #### [facility] [address] [place] [address] Dr. Kvng Smith Platelet mean volume (Bld) [Entitic vol] 8.9 fL Critically low 9.5-13.5 [facility] Comment on above: Performed By: #### C BC #### [facility] [address] [address] [address] Kvng Smith PLT 208 103/ul Normal 150-450 [facility] Comment on above: Performed By: #### C BC #### [facility] [address] [place] [address] Dr. Kvng Smith RBC 5.04 106/ul Normal 4.70-6.10 [facility] Comment on above: Performed By: #### C BC #### [facility] [address] [place] [address] Dr. Kvng Smith WBC 6.9 103/ul Normal 4.0-11.0 [facility] Comment on above: Performed By: #### C BC #### [facility] [address] [place] [address] Dr. Kvng Smith LIPID PROFILEon 05-27-2022 CHOL-HDL RATIO NORM SEE BELOW Normal [facility] Comment on above: Result Comment: 3.3 - 4.4 LOW RISK 4.4 - 7.1 AVERAGE RISK 7.1 - 11.0 MODERATE RISK >11.0 HIGH RISK Performed By: #### L IPID, CMP #### [facility] [address] [place] [address] Dr. Kvng Smith Cholesterol [Mass/Vol] 135 mg/dL Normal <=200 [facility] Comment on above: Performed By: #### L IPID, CMP #### [facility] [address] [place] [address] Dr. Kvng Smith Cholesterol in HDL [Mass/Vol] 38 mg/dL Critically low 40-60 [facility] Comment on above: Performed By: #### L IPID, CMP #### [facility] [address] [address] [address] Kvng Smith Cholesterol in LDL [Mass/Vol] 61.2 mg/dL Normal [facility] Comment on above: Performed By: #### L IPID, CMP #### [facility] [address] [address] [address] Kvng Smith Cholesterol.total/ Cholesterol in HDL [Mass ratio] 3.6 {ratio} Normal [facility] Comment on above: Performed By: #### L IPID, CMP #### [facility] [address] [address] [address] Kvng Smith HDL NORMAL > or = 60 mg/dl - LO W CARDIOVASCULAR RISK <40 mg/dl - HIGH CARDIOVASCULAR RISK Normal [facility] Comment on above: Performed By: #### L IPID, CMP #### [facility] [address] [address] [address] Kvng Smith LDL CALC NORMAL SEE BELOW Normal [facility] Comment on above: Result Comment: <100 mg/dl OPTIMAL 100 - 129 mg/dl NEAR OR ABOVE OPTIMAL 130 - 159 mg/dl BORDERLINE HIGH 160 - 189 mg/dl HIGH >190 mg/dl VERY HIGH Performed By: #### L IPID, CMP #### [facility] [address] [address] [address] Kvng Smith Triglyceride [Mass/Vol] 179 mg/dL Critically high <=150 [facility] Comment on above: Performed By: #### L IPID, CMP #### [facility] [address] [address] [address] Kvng Smith VLDL CALC 35.8 mg/dL Normal [facility] Comment on above: Performed By: #### L IPID, CMP #### [facility] [address] [address] [address] Kvng Smith PROF 14(COMP METB)on 023 Albumin [Mass/Vol] 3.6 g/dL Normal 3.4-5.0 [facility] Comment on above: Performed By: #### L IPID, CMP #### [facility] [address] [address] [address] Kvng Smith Albumin/Globulin [Mass ratio] 1.2 {ratio} Normal [facility] Comment on above: Performed By: #### L IPID, CMP #### [facility] [address] [address] [address] Kvng Smith ALP [Catalytic activity/Vol] 129 U/L Critically high 46-116 [facility] Comment on above: Performed By: #### L IPID, CMP #### [facility] [address] [address] [address] Kvng Smith ALT [Catalytic activity/Vol] 32 U/L Normal 16-63 [facility] Comment on above: Performed By: #### L IPID, CMP #### [facility] [address] [place] [address] Dr. Kvng Smith Anion gap [Moles/Vol] 8.8 mmol/L Normal [facility] Comment on above: Performed By: #### L IPID, CMP #### [facility] [address] [address] [address] Kvng Smith AST [Catalytic activity/Vol] 16 U/L Normal 15-37 [facility] Comment on above: Performed By: #### L IPID, CMP #### [facility] [address] [address] [address] Kvng Smiht Bilirubin [Mass/Vol] 0.5 mg/dL Normal 0.2-1.0 [facility] Comment on above: Performed By: #### L IPID, CMP #### [facility] [address] [address] [address] Kvng Smith Calcium [Mass/Vol] 9.3 mg/dL Normal 8.5-10.1 [facility] Comment on above: Performed By: #### L IPID, CMP #### [facility] [address] [address] [address] Kvng Smith Chloride [Moles/Vol] 104 mmol/L Normal 98-107 [facility] Comment on above: Performed By: #### L IPID, CMP #### [facility] [address] [place] [address] Dr. Kvng Smith CO2 [Moles/Vol] 32.1 mmol/L Critically high 21.0-32.0 [facility] Comment on above: Performed By: #### L IPID, CMP #### [facility] [address] [place] [address] Dr. Kvng Smith Creatinine [Mass/Vol] 0.91 mg/dL Normal 0.70-1.30 [facility] Comment on above: Performed By: #### L IPID, CMP #### [facility] [address] [place] [address] Dr. Kvng Smith EGFR-AF ARMENIAN >60 Normal >=60 [facility] Comment on above: Performed By: #### L IPID, CMP #### [facility] [address] [place] [address] Dr. Kvng Smith EGFR-NON AF ARMENIAN >60 Normal >=60 [facility] Comment on above: Performed By: #### L IPID, CMP #### [facility] [address] [place] [address] Dr. Kvng Smith Globulin (S) [Mass/Vol] 3.0 g/dL Normal [facility] Comment on above: Performed By: #### L IPID, CMP #### [facility] [address] [place] [address] Dr. Kvng Smith Glucose [Mass/Vol] 108 mg/dL Critically high 74-106 [facility] Comment on above: Performed By: #### L IPID, CMP #### [facility] [address] [place] [address] Dr. Kvng Smith Potassium [Moles/Vol] 3.9 mmol/L Normal 3.5-5.1 [facility] Comment on above: Performed By: #### L IPID, CMP #### [facility] [address] [place] [address] Dr. Kvng Smith Protein [Mass/Vol] 6.6 g/dL Normal 6.4-8.2 [facility] Comment on above: Performed By: #### L IPID, CMP #### [facility] [address] [place] [address] Dr. Kvng Smith Sodium [Moles/Vol] 141 mmol/L Normal 136-145 [facility] Comment on above: Performed By: #### L IPID, CMP #### [facility] [address] [place] [address] Dr. Kvng Smith Urea nitrogen [Mass/Vol] 14.0 mg/dL Normal 7.0-18.0 [facility] Comment on above: Performed By: #### L IPID, CMP #### [facility] [address] [place] [address] Dr. Kvng Smith Urea nitrogen/Creatinin e [Mass ratio] 15.4 mg/mg Normal [facility] Comment on above: Performed By: #### L IPID, CMP #### [facility] [address] [place] [address] Dr. Kvng Smith CBC AUTO DIFFon 04-09-2022 BASO # 0.0 103/ul Normal 0.0-0.1 [facility] Comment on above: Performed By: #### C BC #### [facility] [address] [place] [address] Dr. Kvng Smith Basophils/100 WBC (Bld) 0.7 % Normal 0.2-2.0 [facility] Comment on above: Performed By: #### C BC #### [facility] [address] [place] [address] Dr. Kvng Smith EO # 0.1 103/ul Normal 0.0-0.7 [facility] Comment on above: Performed By: #### C BC #### [facility] [address] [place] [address] Dr. Kvng Smith Eosinophils/100 WBC (Bld) 2.3 % Normal 0.9-7.0 [facility] Comment on above: Performed By: #### C BC #### [facility] [address] [place] [address] Dr. Kvng Smith Erythrocyte distribution width (RBC) [Ratio] 12.9 % Normal 11.0-15.0 [facility] Comment on above: Performed By: #### C BC #### [facility] [address] [place] [address] Dr. Kvng Smith Hematocrit (Bld) [Volume fraction] 47.1 % Normal 42.0-54.0 [facility] Comment on above: Performed By: #### C BC #### [facility] [address] [place] [address] Dr. Kvng Smith Hemoglobin (Bld) [Mass/Vol] 15.3 g/dL Normal 14.0-18.0 [facility] Comment on above: Performed By: #### C BC #### [facility] [address] [place] [address] Dr. Kvng Smith IG # 0.01 10e3/ul Normal 0.00-0.03 [facility] Comment on above: Performed By: #### C BC #### [facility] [address] [place] [address] Dr. Kvng Smith IG % 0.2 % Normal 0.0-0.5 [facility] Comment on above: Performed By: #### C BC #### [facility] [address] [place] [address] Dr. Kvng Smith LYMPH # 1.5 103/ul Normal 1.2-3.8 [facility] Comment on above: Performed By: #### C BC #### [facility] [address] [place] [address] Dr. Kvng Smith Lymphocytes/100 WBC (Bld) 26.7 % Normal 20.5-60.0 [facility] Comment on above: Performed By: #### C BC #### [facility] [address] [place] [address] Dr. Kvng Smith MANUAL DIFF REQ NO Normal [facility] Comment on above: Performed By: #### C BC #### [facility] [address] [place] [address] Dr. Kvng Smith MCH (RBC) [Entitic mass] 27.7 pg Normal 25.9-34.0 [facility] Comment on above: Performed By: #### C BC #### [facility] [address] [place] [address] Dr. Kvng Smith MCHC (RBC) [Mass/Vol] 32.5 g/dL Normal 29.9-35.2 [facility] Comment on above: Performed By: #### C BC #### [facility] [address] [place] [address] Dr. Kvng Smith MCV (RBC) [Entitic vol] 85.2 fL Normal 80.0-94.0 [facility] Comment on above: Performed By: #### C BC #### [facility] [address] [place] [address] Dr. Kvng Smith MONO # 0.4 103/ul Normal 0.3-0.8 [facility] Comment on above: Performed By: #### C BC #### [facility] [address] [place] [address] Dr. Kvng Smith Monocytes/100 WBC (Bld) 7.8 % Normal 1.7-12.0 [facility] Comment on above: Performed By: #### C BC #### [facility] [address] [place] [address] Dr. Kvng Smith NEUT # 3.5 103/ul Normal 1.4-6.5 [facility] Comment on above: Performed By: #### C BC #### [facility] [address] [place] [address] Dr. Kvng Smith Neutrophils/100 WBC (Bld) 62.3 % Normal 43.0-75.0 [facility] Comment on above: Performed By: #### C BC #### [facility] [address] [place] [address] Dr. Kvng Smith Platelet mean volume (Bld) [Entitic vol] 9.0 fL Critically low 9.5-13.5 [facility] Comment on above: Performed By: #### C BC #### [facility] [address] [place] [address] Dr. Kvng Smith PLT 184 103/ul Normal 150-450 [facility] Comment on above: Performed By: #### C BC #### [facility] [address] [place] [address] Dr. Kvng Smith RBC 5.53 106/ul Normal 4.70-6.10 [facility] Comment on above: Performed By: #### C BC #### [facility] [address] [place] [address] Dr. Kvng Smith WBC 5.7 103/ul Normal 4.0-11.0 [facility] Comment on above: Performed By: #### C BC #### [facility] [address] [place] [address] Dr. Kvng Smith PROF CHEM 8 (BAS METB)on Anion gap [Moles/Vol] 10.2 mmol/L Normal [facility] Comment on above: Performed By: #### B MP #### [facility] [address] [place] [address] Dr. Kvng Smith Calcium [Mass/Vol] 9.0 mg/dL Normal 8.5-10.1 [facility] Comment on above: Performed By: #### B MP #### [facility] [address] [place] [address] Dr. Kvng Smith Chloride [Moles/Vol] 104 mmol/L Normal 98-107 [facility] Comment on above: Performed By: #### B MP #### [facility] [address] [place] [address] Dr. Kvng Smith CO2 [Moles/Vol] 30.9 mmol/L Normal 21.0-32.0 [facility] Comment on above: Performed By: #### B MP #### [facility] [address] [place] [address] Dr. Kvng Smith Creatinine [Mass/Vol] 0.83 mg/dL Normal 0.70-1.30 [facility] Comment on above: Performed By: #### B MP #### [facility] [address] [place] [address] Dr. Kvng Smith EGFR-AF ARMENIAN >60 Normal >=60 [facility] Comment on above: Performed By: #### B MP #### [facility] [address] [place] [address] Dr. Kvng Smith EGFR-NON AF ARMENIAN >60 Normal >=60 [facility] Comment on above: Performed By: #### B MP #### [facility] [address] [address] [address] Kvng Smith Glucose [Mass/Vol] 106 mg/dL Normal 74-[address] [facility] Comment on above: Performed By: #### B MP #### [facility] [address] [id number] [address] Kvng Smith Potassium [Moles/Vol] 5.1 mmol/L Normal 3.5-5.1 [facility] Comment on above: Performed By: #### B MP #### [facility] [address] [address] [address] Kvng Smith Sodium [Moles/Vol] 140 mmol/L Normal 136-[address] [facility] Comment on above: Performed By: #### B MP #### [facility] [address] [address] [address] Kvng Smith Urea nitrogen [Mass/Vol] 14.0 mg/dL Normal 7.0-18.0 [facility] Comment on above: Performed By: #### B MP #### [facility] [address] [address] [address] Kvng Smith Urea nitrogen/Creatinin e [Mass ratio] 16.9 mg/mg Normal [facility] Comment on above: Performed By: #### B MP #### [facility] [address] [address] [address] Kvng Smith US ABD AORTA DIAGNOSTICon [...] by: AARON ARAGON Date: 2022-04-09 17:01 Normal [facility] US CAROTID ART BILon 022 US CAROTID ART PREETHI EXAMINATION: US [...] by: AARON ARAGON Date: 2022-04-09 17:03 Normal [facility] NM STRESS/REST MULTIon 03-26 NM STRESS/REST MULTI Patient: VIVIENNE BRAMBILA Exam Date: 03/26/2022 : 1960 Gender:M Ordering : DR NEFTALI NEAL . Admission #: [id number] Family : Order #: [id number] CLICK HERE TO VIEW EXAM RADIOLOGY REPORT [...] Aragon MD on 03/26/2022 at 14:16 Normal [facility] Vital Signs Date Time Vital Sign Value Performing Clinician Tico stacy 03-22-2024 14:25-0500 Blood Pressure Location Talon QUILES [facility] 03-22-2024 14:25-0500 Diastolic blood pressure 76 mm[Hg] Talon QUILES [facility] 03-22-2024 14:25-0500 Heart rate 72 /min Talon ALLENL [facility] 03-22-2024 14:25-0500 Respiratory rate 16 /min Talon NILL [facility] 03-22-2024 14:25-0500 Systolic blood pressure 120 mm[Hg] Talon ALLENL [facility] Encounters Encounter Date Encounter Type Care Provider Facility Start: 05-16-2024 End: 05-16-2024 ambulatory Talon QUILES Facility:[facility] Start: 05-16-2024 End: 05-16-2024 Patient encounter procedure Talon QUILES [facility] Start: 04-19-2024 End: 04-19-2024 ambulatory Talon Junior ALEJANDROL Facility:[id number] Start: 03-22-2024 End: 03-22-2024 ambulatory Neftali Neal Facility:[facility] Start: 03-22-2024 End: 03-22-2024 Patient encounter procedure Talon Pacheco NILL [facility] Start: 02-24-2024 ambulatory Talon QUILES Facility:[facility] Start: 11-15-2023 End: 11-15-2023 ambulatory [facility] Start: 06-01-2022 End: 07-21-[address] NEFTALI NEAL . Facility: Start: 05-27-2022 End: 05-28-[address] NEFTALI NEAL . Facility: Start: 04-10-2022 Encounter for other preprocedural examination SERGIO LOGAN [facility] Start: 04-09-2022 End: 04-10-2022 ambulatory LUIS RO Facility: Start: 04-09-2022 End: 04-10-2022 ambulatory SERGIO LOGAN Facility: Start: 04-09-2022 End: 04-10-2022 Encounter for other preprocedural examination SERGIO LOGAN Facility: Start: 03-26-2022 End: 03-27-[address] NEFTALI NEAL . Facility: Procedures Date Procedure Procedure Detail Performing Clinician Start: 04-19-2024 Colonoscopy Talon NI LL Start: 04-09-2022 Coronary artery bypa ss graft x 1 Talon NILL Cholecystectomy Talon NILL Repair of left ingui nal hernia Talon NILL Payers Date Payer Category Payer Unknown [id number] 2.16.84 [id number] 1960 Unknown [id number] 2.16.84 [id number] 1960 Unknown [id number] 2.16.84 [id number] 1960 Unknown [id number] 2.16.84 [id number] 1960 Unknown [id number] 2.16.84 [id number] 1960 Unknown [id number] 2.16.8 [id number] 1960 Unknown [id number] 2.16.8 [id number] 1960 Unknown [id number] 2.16.8 [id number] 1958 Unknown [id number] Social History Date Type Detail Facility Start: 03-22-2024 End: 05-16-2024 Tobacco smoking status Ex-smoker (finding) [facility] Tobacco smoking status Former sm okeless tobacco user, quit more than 30 days ago [facility] Sex Assigned At Male [facility] Functional Status Date Assessment Result Facility 05-16-2024 Functional Status N/A [facility] 03-22-2024 Functional Status N/A [facility] Clinical Note 03-22-2024 Note Date & Type Note Facility 03-22-2024 Note [facility] Surgery Offi ce/Clinic Note Chief Complaint consultation [...] Family History Heart disease: Father and Brother. [facility] Comment on above: Result Comment: Elec tronically Signed By: ETTA SOTO, Talon Henning\Date and Time Signed: 03/22/24 15:20 EST Progress note 11-15-2023 Note Date & Type Note Facility 11-15-2023 Note [facility] Cardiology Clinic Note Chief Complaint: [...] PSYCH: appropriate mood, affect, and judgement. Investigations: [facility] Heart Station [address] [place] [id number] [phone] (fax) Echocardiogram-[facility] Name: VIVIENNE BRAMBILA Study Date: 04/20/2022 03:17 PM B/P: / HR: Date of : 1960 Location: [facility] Height: 70 in. Age: 61 year(s) Patient Room : [facility] Weight: 226 lb. Gender: [...] coronary artery dis (more content not included)... [facility] Evaluation + Plan note Note Date & Type Note Facility Evaluation + Plan note No data available for this section [facility] Hospital Discharge instructions Note Date & Type Note Facility Hospital Discharge instructions No data available for this section [facility] Progress note Note Date & Type Note Facility Progress note No data available for this section [facility] Summary Purpose Family History No Family History Records FoundNo Family History Records Found No data available for this section No Family History Records Found No data available for this section Advance Directives No Advanced Directives Records FoundNo Advanced Directives Records FoundNo Advanced Directives Records Found Additional Source Comments (unrecognized sect ion and content) No Status Records FoundNo Status Records FoundNo Status Records Found INFORMATION SOURCE (unrecogn ized section and content) DATE CREATED AUTHOR 07/22/2022 [facility] DATE CREATED AUTHOR AUTHOR'S ORGANIZ ATION 11/15/2023 [facility] DATE CREATED AUTHOR AUTHOR'S ORGANIZ ATION 05/18/2024 [facility] Patient Care team informatio n (unrecognized section and content) Personnel Name: Neftali Neal MD Address: Address: [address] [place] [address] Personnel Name: Neftali Neal MD Address: Address: [address] [place] [address] FOR RECORDS PERTAINING TO PATIENTS WHO ARE [...] BE BASED ON THE PRIMARY CLINICAL RECORDS. [facility]. provides no warranty or guarantee of the accuracy or completeness of information in this document.
--- NOTE | 2024-09-18 15:13 | P.STRESS_ITS ---
Stress Test Stress Test Allergies Allergy/AdvReac Type Severity Reaction Status Date / Time No Known Drug Allergies Allergy Verified 04/11/24 14:26 Requesting physician: eHctor Neal Procedure: This was a Treadmill stress test with myocardial perfusion imaging performed at the [facility] on 09/18/2024. Intravenous line was secured. The patient was attached to electrocardiographic monitoring. Baseline vital signs and ECG were obtained. The patient exercised on the treadmill according to the Alex protocol. Cardiolite was administered at peak exercise. The patient then went on to obtain myocardial perfusion imaging. Total exercise time was 4 minutes and 21 seconds and the patient reached stage II of the Alex protocol and achieved 7.0 METS. Resting heart rate was 65 bpm and peak heart rate was 139 bpm representing 88% of maximal predicted heart rate. Resting blood pressure was 150/98 and peak blood pressure was 180/98. General Information: Reason for Stress Test: Chest pain. Cardiac History and Risk Factors: Hypertension, history of myocardial infarction, status post CABG. Resting 12 - Lead Electrocardiogram: Normal sinus rhythm. Normal ECG. Stress Test: Protocol: Alex protocol. Exercise Capacity: Average. Blood Pressure Response: Resting hypertension, exaggerated blood pressure response to exercise. Rhythm: Sinus rhythm. No arrhythmias seen during the test. ST - Response: No ischemic ST changes seen during the test. Patient Response: Shortness of breath, no chest pain. Interpretation: 1. Negative treadmill exercise stress test for ischemic ST changes. 2. Stanley treadmill score of +4 is associated with intermediate risk for long- term cardiac events. 3. Myocardial perfusion images will be reported separately.
== END 2024-09-18 11:15 | disposition home or self-care (01) ==
LOC: NM 11:14
PROVIDERS: PCP Family Medicine; Visit Provider Family Medicine
DX: R07.89 Other chest pain (principal)
CPT/HCPCS: 78452; 93017; A9500